=== PATIENT | female | born 1970 | race Caucasian/White ===

== ENCOUNTER → 2017-03-25 | Outpatient (CLI) | payer BC, OTHER ==
[~2017-03-25] MED LIST: CYAN100021 PO; LACT1CAP62 PO; MULT-608; OMEP20CA6; SCR1T PO; orthotricycline PO
--- NOTE | 2017-03-26 19:12 | Diagnostic Imaging Report ---
Bilateral screening mammogram. The current study was also evaluated with a Computer Aided Detection (CAD) system. INDICATION: Screening. No current complaints stated on the questionnaire. COMPARISON: 08/20/15. FINDINGS: The breasts are composed of scattered fibroglandular densities. There are occasional benign-appearing calcifications. Allowing for technique and positional differences, no suspicious change is seen. IMPRESSION: No significant change. ACR BI-RADS Category 2: Benign findings. Result letter will be mailed to the patient. Note: At least 10% of breast cancer is not imaged by mammography. Dictated on workstation # [id number]
== END ==
LOC: RAD 10:37
PROVIDERS: ATTEND Obstetrics & Gynecology
DX: Z12.31 Encounter for screening mammogram for malignant neoplasm of breast (principal)
CPT/HCPCS: 77067

== ENCOUNTER → 2017-05-21 | Outpatient (CLI) | payer BC ==
[2017-05-21 09:55] LABS: BASOPHILS % (AUTO) 0 % (0-10); EOSINOPHILS # (AUTO) 0.1 10^3/uL (0.0-0.3); EOSINOPHILS % (AUTO) 2 % (0-10); LYMPHOCYTES # (AUTO) 1.8 X 10^3 (1.0-4.0); LYMPHOCYTES % (AUTO) 28 % (12-44); MEAN CORPUSCULAR HEMOGLOBIN 30 PG (25-34); MEAN CORPUSCULAR HGB CONC 33 G/DL (32-36); MEAN CORPUSCULAR VOLUME 89 FL (80-99); MEAN PLATELET VOLUME 9.9 FL (7.4-10.4); MONOCYTES # (AUTO) 0.5 X 10^3 (0.0-1.0); MONOCYTES % (AUTO) 8 % (0-12); NEUTROPHILS % (AUTO) 63 % (42-75); PLATELET COUNT 301 10^3/uL (130-400); RED BLOOD COUNT 4.25 10^6/uL (4.35-5.85); WHITE BLOOD COUNT 6.4 10^3/uL (4.3-11.0)
[2017-05-21 10:16] LABS: ALANINE AMINOTRANSFERASE 12 U/L (0-55); ALBUMIN 4.2 GM/DL (3.2-4.5); ANION GAP 10 MMOL/L (5-14); ASPARTATE AMINO TRANSFERASE 15 U/L (5-34); BILIRUBIN,TOTAL 1.1 MG/DL (0.1-1.0); BLOOD UREA NITROGEN 18 MG/DL (7-18); BUN/CREATININE RATIO 23; CALCIUM 9.4 MG/DL (8.5-10.1); CARBON DIOXIDE 25 MMOL/L (21-32); CHLORIDE 105 MMOL/L (98-107); CHOLESTEROL 234 MG/DL (< 200); CREATININE SERUM 0.78 MG/DL (0.60-1.30); DIRECT LDL 159 MG/DL (1-129); GFR ESTIMATED > 60; GLUCOSE 98 MG/DL (70-105); POTASSIUM 3.9 MMOL/L (3.6-5.0); SODIUM 140 MMOL/L (135-145); TOTAL PROTEIN 7.3 GM/DL (6.4-8.2); TRIGLYCERIDES 70 MG/DL (<150); VLDL CHOLESTEROL 14 MG/DL (5-40)
[2017-05-21 10:39] LABS: THYROID STIMULATING HORMONE 0.77 UIU/ML (0.35-4.94)
== END ==
LOC: LAB 09:37
PROVIDERS: ATTEND Internal Medicine
DX: E78.00 Pure hypercholesterolemia, unspecified (principal); E78.1 Pure hyperglyceridemia
CPT/HCPCS: 36415; 80053; 80061; 84443; 85025

== ENCOUNTER → 2017-11-25 | Outpatient (CLI) | payer BC ==
[~2017-11-25] MED LIST changes: +BARIUM SUSPENSION 105% (LIQUID POLIBAR PLUS) 240 ML/DOSE PO ONE
--- NOTE | 2017-11-25 11:17 | Diagnostic Imaging Report ---
INDICATION: Patient is status post LAP-BAND surgery in 2009. The study is performed to evaluate for appropriate positioning of the LAP-BAND. COMPARISON: Prior upper GI performed on 12/06/2009. FINDINGS: Post surgical changes of LAP-BAND surgery are noted. The location and orientation of the LAP-BAND appear to be stable when compared with the prior exam from 2009. The distal esophagus demonstrates a smooth contour. Contrast does pass through the LAP-BAND into the stomach without difficulty. There is moderate narrowing at the location of the LAP-BAND. No significant obstruction is seen, however. There is no extravasation of contrast. Contrast does empty from the stomach into the proximal small bowel. 1 minute and 37 seconds of fluoroscopy was utilized. IMPRESSION: Postsurgical changes of LAP-BAND surgery. No complicating features are identified. Dictated by: Dictated on workstation # [id number]
== END ==
LOC: RAD 09:29
PROVIDERS: ATTEND Nurse Practitioner Family
DX: K21.9 Gastro-esophageal reflux disease without esophagitis (principal); Z98.84 Bariatric surgery status
CPT/HCPCS: 74241

== ENCOUNTER 2018-07-18 05:36 | Outpatient (CLI) | payer BC ==
[~2018-07-18] VITALS: Ht 170.2 cm; Wt 124.3 kg
[~2018-07-18 05:36] MED LIST changes: -BARIUM SUSPENSION 105% (LIQUID POLIBAR PLUS) 240 ML/DOSE PO ONE
== END 2018-07-18 12:02 | disposition home or self-care (01) ==
LOC: PREOP 05:36
PROVIDERS: ATTEND Podiatrist Foot Surgery
DX: Z01.818 Encounter for other preprocedural examination (principal)

== ENCOUNTER 2018-07-22 05:52 | Day surgery (SDC) | payer BC ==
[~2018-07-22] VITALS: Ht 170.2 cm; Wt 124.3 kg
--- OUTSIDE RECORDS SUMMARY | 2018-07-22 05:56 | XMS REPORT | Clinical Summary ---
Author Author User, [employer] [facility] Organization [facility] [place] Address Unknown Phone Unavailable Allergies, Adverse Reactions, Alerts Allergy Name Reaction Description Start Date Severity Status Provider No Known Allergies Teena Desai Conditions or Problems Problem Name Problem Code Onset Date Status Entry Date Provider Comment Standard Description Annotate SCIATICA/HERNIATED DISC 722.10 Resolved Chantelle Landrum Displacement of lumbar intervertebral disc without myelopathy BACK PAIN 724.5 Resolved Chantelle Landrum Backache, unspecified EASY BRUISABILITY 924.9 Resolved Chantelle Landrum Contusion of unspecified site HEADACHE 784.0 Resolved Chantelle Landrum Headache SKIN LESION 709.9 Resolved Chantelle Landrum Unspecified disorder of skin and subcutaneous tissue WEIGHT GAIN, ABNORMAL 783.1 Resolved Chantelle Landrum Abnormal weight gain CERUMEN IMPACTION, BILATERAL 380.4 Resolved Chantelle Landrum Impacted cerumen CONSTIPATION, CHRONIC 564.09 Resolved Chantelle Landrum Other constipation ABDOMINAL BLOATING 787.3 Resolved Chantelle Landrum Flatulence, eructation, and gas pain PALPITATIONS, OCCASIONAL 785.1 Resolved Chantelle Landrum Palpitations TACHYCARDIA 785.0 Resolved Chantelle Landrum Tachycardia, unspecified ABDOMINAL MASS, RIGHT UPPER QUADRANT 789.31 Resolved Chantelle Landrum Abdominal or pelvic swelling, mass, or lump, right upper quadrant WOUND OPEN, SITE NOS W/O COMPLICATION 879.8 Resolved Chantelle Landrum Open wound(s) (multiple) of unspecified site(s) except limbs, without mention of complication ABSCESS, EYELID 373.13 Resolved Chantelle Landrum Abscess of eyelid BRONCHITIS 490 Resolved Chantelle Landrum Bronchitis, not specified as acute or chronic SINUSITIS 473.9 Resolved Chantelle Landrum Unspecified sinusitis (chronic) ABDOMINAL PAIN, RIGHT UPPER QUADRANT 789.01 Resolved Chantelle Landrum Abdominal pain, right upper quadrant ABDOMINAL PAIN, ACUTE 789.00 Resolved Chantelle Landrum Abdominal pain, unspecified site DYSURIA 788.1 Resolved Chantelle Landrum Dysuria PELVIC PAIN 625.9 Resolved Chantelle Landrum Unspecified symptom associated with female genital organs RIB PAIN, RIGHT SIDED 848.3 Resolved Chantelle Landrum Sprain of ribs PLEURISY 511.0 Resolved Chantelle Landrum Pleurisy without mention of effusion or current tuberculosis ABDOMINAL PAIN, ACUTE 789.00 Resolved Chantelle Landrum Abdominal pain, unspecified site FRACTURE, STERNUM 807.2 Resolved Chantelle Landrum Closed fracture of sternum CHEST PAIN 786.5 Resolved Chantelle Landrum Chest pain PHARYNGITIS, ACUTE 462 Resolved Chantelle Landrum Acute pharyngitis BRONCHITIS 490 Resolved Chantelle Landrum Bronchitis, not specified as acute or chronic DERMATITIS 692.9 Resolved Chantelle Landrum Contact dermatitis and other eczema, unspecified cause NEVUS 216.9 Resolved Chantelle Landrum Benign neoplasm of skin, site unspecified CERUMEN IMPACTION, BILATERAL 380.4 Resolved Chantelle Landrum Impacted cerumen HYPERGLYCEMIA, MILD 790.6 Resolved Chantelle Landrum Other abnormal blood chemistry GERD 530.81 Resolved Chantelle Landrum Esophageal reflux ACNE VULGARIS, MILD 706.1 Resolved Chantelle Landrum Other acne ANEMIA NOS 285.9 Resolved Chantelle Landrum Anemia, unspecified VITAMIN B12 DEFICIENCY 266.2 Resolved Chantelle Landrum Other B-complex deficiencies FATIGUE 780.79 Resolved Chantelle Landrum Other malaise and fatigue GERD 530.81 Active Chantelle Landrum Esophageal reflux WELL WOMAN V70.0 Resolved Chantelle Landrum Routine general medical examination at a health care facility HEALTH SCREENING V70.0 Resolved Chantelle Landrum Routine general medical examination at a health care facility ANKLE PAIN, LEFT 719.47 Resolved Chantelle Landrum Pain in joint involving ankle and foot PNEUMONIA 486 Resolved Chantelle Landrum Pneumonia, organism unspecified URI 465.9 Resolved Chantelle Landrum Acute upper respiratory infections of unspecified site URTICARIA, ACUTE 708.9 Resolved Chantelle Landrum Unspecified urticaria POLYARTHRALGIA 719.49 Active Chantelle Landrum Pain in joint involving multiple sites HAND PAIN, RIGHT 729.5 Resolved Chantelle Landrum Pain in limb HYPERCHOLESTEROLEMIA 272.0 Active Chantelle Landrum Pure hypercholesterolemia ANEMIA, IRON DEFICIENCY NEC 280.8 Active Chantelle Landrum Other specified iron deficiency anemias WEIGHT GAIN, ABNORMAL 783.1 Active Chantelel Landrum Abnormal weight gain Medication List Medication Instructions Start Date Stop Date Generic Name NDC Status Provider Patient Instruction CARAFATE 1 GM/10ML SUSP 10 mL PO 30 minutes before meals and at bedtime. 2014 SUCRALFATE [id number] Active Chantelle Landrum VITAMIN B-12 1000 MCG TABS 1 PO daily CYANOCOBALAMIN 55280522122 Active Chantelle Landrum PREDNISONE 10 MG TAB 2 po at one time once daily for 3 days then 1 po daily for 3 days PREDNISONE 42471300027 No Longer Active Chantelle Landrum PREDNISONE 20 MG TAB 2 pills at once for 3 days then 1 pill daily for 3 days PREDNISONE 05996568677 No Longer Active Chantelle Landrum BIAXIN 500 MG TABS 1 PO BID X 7 DAYS CLARITHROMYCIN 12328873281 No Longer Active Chantelle Landrum TRIAMCINOLONE ACETONIDE 0.1 % CREA apply BID TRIAMCINOLONE ACETONIDE (TOP) 54229458727 No Longer Active Chantelle Landrum HYDROXYZINE HCL 25 MG TABS 1-2 PO QHS prn itching HYDROXYZINE HCL 43793910984 No Longer Active Chantelle Landrum TESSALON PERLES 100 MG CAPS 1 PO TID prn cough BENZONATATE 87717300913 No Longer Active Chantelle Landurm CIPRO 500 MG TABS 1 PO BID CIPROFLOXACIN HCL 10309778903 No Longer Active Chantelle Landrum PROAIR HFA 108 (90 BASE) MCG/ACT AERS 2 puff Q4 hrs prn wheezing ALBUTEROL SULFATE 67092696457 No Longer Active Chantelle Patricia Landrum ADV DISKUS 100-50 MCG/DOSE MISC 1 puff BID FLUTICASONE-SALMETEROL 13627273112 No Longer Active Chantelle Patricia Landrum HYDROCODONE-ACETAMINOPHEN 5-325 MG TABS 1-2 PO Q4-6 hrs prn pain HYDROCODONE-ACETAMINOPHEN 30103569118 No Longer Active Chantelle Patricia Landrum PHENTERMINE HCL 37.5 MG CAPS 1 PO Daily PHENTERMINE HCL 29902072578 No Longer Active Chantelle Patricia Landrum CARAFATE 1 GM/10ML SUSP 1 teaspoon PO AC and HS SUCRALFATE 44332106102 No Longer Active Chantelle Patricia Landrum MULTIVITAMINS TABS 1 PO QD MULTIPLE VITAMIN 52168635052 No Longer Active Chantelle Patricia Landrum PRILOSEC 20 MG CAP CR 1 PO BID OMEPRAZOLE 76962978576 No Longer Active Chantelle Patricia Landrum CARAFATE 1 GM TABS 1 PO 30 minutes before meals and at bedtime SUCRALFATE 72184539120 No Longer Active Chantelle Patricia Landrum PHENTERMINE HCL 37.5 MG CAPS 1 PO Daily PHENTERMINE HCL 93757812659 No Longer Active Chantelle Patricia Landrum ARMJAYDA THYROID 60 MG TABS 1 PO Daily THYROID 67491677970 No Longer Active Chantelle Patricia Landrum LES 180 MG TABS 1 PO QD FEXOFENADINE HCL 52310648216 No Longer Active Chantelle Patricia Landrum DOCUSATE SODIUM 50 MG/15ML SYRP 3 drops each ear. Let stand for 15 min. then rinse out. Repeat daily. DOCUSATE SODIUM 48352558824 No Longer Active Chantellemakenzie Landrum PREDNISONE 20 MG TAB 2 PO daily for 3 days and then 1 PO daily for 2 days PREDNISONE 50196673414 No Longer Active Chantelle Patricia Landrum BACTRIM DS 800-160 MG TAB 1 PO BID for 7 days TRIMETHOPRIM-SULFAMETHOXAZOLE 48396742727 No Longer Active Chantelle Patricia Landrum LORTAB 5 5-500 MG TABS 1 to 2 PO Q6hrs prn ACETAMINOPHEN-HYDROCODONE 41276009147 No Longer Active Chantelle Patricia Landrum PREDNISONE 20 MG TAB 2 PO daily for 4 days PREDNISONE 91486504016 No Longer Active Chantelle Patricia Landrum CODICLEAR DH 5-100 MG/5ML SYRP 5 cc Po Q4-6prn HYDROCODONE-GUAIFENESIN 19031033488 No Longer Active Chantelle Patricia Landrum MUCINEX 600 MG TB12 1 PO BID for 5 days GUAIFENESIN 49891251728 No Longer Active Chantelle Patricia Landrum BIAXIN XL PAC 500 MG TB24 2 pills at same time daily for 7 days CLARITHROMYCIN 03640320241 No Longer Active Chantellemakenzie Landrum PHENTERMINE HCL 37.5 MG CAPS 1 PO Daily PHENTERMINE HCL 42640575064 No Longer Active Chantelle Patricia Landrum AUGMENTIN 500-125 MG TAB 1 PO BID AMOXICILLIN-POT CLAVULANATE 00317481764 No Longer Active Chantelle Patricia Landrum AUGMENTIN 500-125 MG TAB 1 PO BID AMOXICILLIN-POT CLAVULANATE 26447094426 No Longer Active Chantelle Patricia JAVED NASAL SPRAY (DEXAMETHASONE, GENTAMICIN, SALINE) 2 puffs each nostril TID DR. MIRAMONTES'S NASAL SPRAY (DEXAMETHASONE, GENTAMICIN, SALINE) No Longer Active Chantelle Patricia Landrum LORTAB 5 5-500 MG TABS 1 to 2 PO Q6hrs prn ACETAMINOPHEN-HYDROCODONE 15952169640 No Longer Active Chantelle Patricia Landrum TRINESSA (28) 0.035 MG TABS one daily NORGESTIMATE- ETHINYL ESTRADIOL 77238517362 No Longer Active Chantelle Patricia Landrum LORTAB 5 5-500 MG TABS 1 PO Q6hrs prn HYDROCODONE- ACETAMINOPHEN 93286896274 No Longer Active Chantelle Patricia Landrum LACTULOSE 10 GM/15ML SOLN 30cc PO QHS prn LACTULOSE 55132400624 No Longer Active Chantelle Patricia MIRAMONTES'S NASAL SPRAY (DEXAMETHASONE, GENTAMICIN, SALINE) 2 puffs each nostril BID DR. MIRAMONTES'S NASAL SPRAY (DEXAMETHASONE, GENTAMICIN, SALINE) No Longer Active Chantelle Patricia Landrum TOBREX 0.3 % SOLN 2 gtts in left eye q 4 hrs. x 5 days TOBRAMYCIN SULFATE 13142374895 No Longer Active Chantelle Patricia Landrum ZITHROMAX Z-DENA 250 MG TABS as directed AZITHROMYCIN 26425778430 No Longer Active Chantelle Patricia Landrum ROBITUSSIN A-C 10-100 MG/5ML SYRUP 5cc PO Q 4-6 hr prn ROBITUSSIN A-C 10-100 MG/5ML SYRUP 10013027330 No Longer Active Chantelle Patricia Landrum KEFLEX 500 MG CAPS 1 PO QID CEPHALEXIN 61174560770 No Longer Active Chantelle Patricia Landrum LORTAB 5 5-500 MG TABS 1 PO Q6hrs prn HYDROCODONE- ACETAMINOPHEN 41472596457 No Longer Active Chantelle Patricia Landrum PHENTERMINE HCL 37.5 MG CAPS 1 PO Qam PHENTERMINE HCL 29695421176 No Longer Active Chantelle Landrum MIRALAX POWD 1 heaping tblspoon in 8 oz of water or juice PO QD POLYETHYLENE GLYCOL 3350 67268783005 No Longer Active Chantelle Landrum COLACE 60 MG/15ML SYRP for ear removal DOCUSATE SODIUM 41094762749 No Longer Active Chantelle Landrum ZELNORM 6 MG TABS 1 po QD-BID TEGASEROD MALEATE 24125292051 No Longer Active Chantelle Landrum Immunizations Vaccine Administration Date Value Standard Description Influenza vaccine given done influenza virus vaccine, unspecified formulation Vital Signs Date Name Value Unit Range Description blood pressure, diastolic - 8462-4 70 mm[Hg] BP rogers blood pressure, systolic - 8480-6 110 mm[Hg] BP sys pulse rate E&M - 8867-4 76 /min Heart rate respiratory rate E&M - 9279-1 14 /min Resp rate weight E&M - 3141-9 233 [lb_av] Weight Measured blood pressure, diastolic - 8462-4 66 mm[Hg] BP rogers blood pressure, systolic - 8480-6 120 mm[Hg] BP sys pulse rate E&M - 8867-4 78 /min Heart rate respiratory rate E&M - 9279-1 14 /min Resp rate temperature E&M 98.3 [degF] Body temperature weight E&M - 3141-9 236 [lb_av] Weight Measured blood pressure, diastolic - 8462-4 78 mm[Hg] BP rogers blood pressure, systolic - 8480-6 110 mm[Hg] BP sys pulse rate E&M - 8867-4 72 /min Heart rate respiratory rate E&M - 9279-1 14 /min Resp rate weight E&M - 3141-9 220 [lb_av] Weight Measured blood pressure, diastolic - 8462-4 76 mm[Hg] BP rogers blood pressure, systolic - 8480-6 122 mm[Hg] BP sys pulse rate E&M - 8867-4 66 /min Heart rate respiratory rate E&M - 9279-1 14 /min Resp rate temperature E&M 97.9 [degF] Body temperature blood pressure, diastolic - 8462-4 76 mm[Hg] BP rogers blood pressure, systolic - 8480-6 122 mm[Hg] BP sys pulse rate E&M - 8867-4 70 /min Heart rate respiratory rate E&M - 9279-1 12 /min Resp rate weight E&M - 3141-9 223 [lb_av] Weight Measured Diagnostic Results Date Name Value Unit Range Description Clinical Lists Update: CBC,CMP,ESR - Chemistry albumin, serum 4.0 g/dL Estimated Glomerular Filtration Rate (calc) >60 mL/min/1.73m2 urea nitrogen, blood 15 mg/dL calcium, serum 9.5 mg/dL chloride, serum 105 mmol/L carbon dioxide, venous blood 25 mmol/L creatinine, serum 0.78 mg/dL potassium, serum 4.0 mmol/L protein, total, serum 7.9 g/dL aspartate aminotransferase (SGOT), serum 24 U/L alanine aminotransferase (SGPT), serum 14 U/L bilirubin, serum, total 0.9 mg/dL sodium, serum 141 mmol/L glucose, plasma fasting 104 mg/dL alkaline phosphatase, serum 64 U/L Clinical Lists Update: CBC,CMP,ESR - Hematology hematocrit, blood 38 % erythrocyte sedimentation rate 59 mm/h hemoglobin, blood 13.0 g/dL platelet count 252 10*3/mm3 erythrocyte (RBC) count 4.22 10*6/mm3 leukocyte count, blood 5.9 10*3/mm3 mean corpuscular volume, RBC 90 fL red blood cell distribution width 12.8 % Clinical Lists Update: CBC,CMP,FLP,TSH,FREE T4,ESR,HGA1C - Chemistry carbon dioxide, venous blood 25 mmol/L cholesterol, serum 271 mg/dL LDL cholesterol, serum 188 mg/dL thyroid stimulating hormone, serum 0.98 u[iU]/mL hemoglobin A1C, blood, as % of total hemoglobin 4.1 % HDL cholesterol, serum 70 mg/dL thyroxine, serum, free 1.18 ng/dL creatinine, serum 0.80 mg/dL albumin, serum 4.0 g/dL Estimated Glomerular Filtration Rate (calc) >60 mL/min/1.73m2 chloride, serum 105 mmol/L calcium, serum 9.6 mg/dL urea nitrogen, blood 15 mg/dL alkaline phosphatase, serum 46 U/L potassium, serum 3.9 mmol/L protein, total, serum 6.8 g/dL aspartate aminotransferase (SGOT), serum 11 U/L alanine aminotransferase (SGPT), serum 7 U/L bilirubin, serum, total 1.1 mg/dL triglyceride, serum, fasting 183 mg/dL sodium, serum 139 mmol/L very low density lipoproteins 37 mg/dL glucose, plasma fasting 96 mg/dL Clinical Lists Update: CBC,CMP,FLP,TSH,FREE T4,ESR,HGA1C - Hematology red blood cell distribution width 12.1 % platelet count 280 10*3/mm3 hematocrit, blood 36 % hemoglobin, blood 12.2 g/dL erythrocyte sedimentation rate 28 mm/h erythrocyte (RBC) count 3.97 10*6/mm3 leukocyte count, blood 5.4 10*3/mm3 mean corpuscular volume, RBC 91 fL Clinical Lists Update: CBC,FERRITIN - Chemistry ferritin, serum 53 ng/mL Clinical Lists Update: CBC,FERRITIN - Hematology hematocrit, blood 37 % hemoglobin, blood 12.4 g/dL platelet count 285 10*3/mm3 erythrocyte (RBC) count 4.00 10*6/mm3 mean corpuscular volume, RBC 92 fL red blood cell distribution width 13.1 % leukocyte count, blood 5.7 10*3/mm3 Clinical Lists Update: Ferritin - Chemistry ferritin, serum 10 ng/mL Encounters Code Encounter Date Provider Facility CPT-98383 Ofc Vst, Est Level IV 16:54:36 CDT Chantelle Landrum DO, FACP CPT-03832 Ofc Vst, Est Level IV 18:02:37 CDT Chantelle Landrum [facility] CPT-25022 Ofc Vst, Est Level III 16:14:14 [employer] Chantelle Landrum DO, FACP CPT-96754 Ofc Vst, Est Level IV 16:48:50 [employer] Chantelle Landrum DO, FACP CPT-03355 Ofc Vst, Est Level III 13:04:28 [employer] Chantelle Landrum [facility] CPT-38987 Ofc Vst, Est Level IV 09:54:51 [employer] Chantelle Landrum DO, FACP CPT-00472 Ofc Vst, Est Level IV 15:24:09 [employer] Chantelle Patricia Diallo Chantelle Kurtis Diallo, DO, FACP CPT-83307 Ofc Vst, Est Level IV 12:57:25 [employer] Chantelle Patricia Watkinsner Chantelle S Diallo, DO, FACP CPT-37124 Ofc Vst, Est Level IV 09:31:50 [employer] Chantelle Patricia Landrum Chantelle S Diallo, DO, FACP CPT-18737 Ofc Vst, Est Level IV 14:15:06 CDT Chantelle Patricia Diallo Chantelle S Diallo, DO, FACP CPT-72492 Ofc Vst, Est Level III 15:43:47 CDT Chantelle Patricia Diallo Chantelle Kurtis Diallo, DO, FACP CPT-82898 Ofc Vst, Est Level III 16:45:32 CDT Chantelle Patricia Diallo Lockhart Kurtis Diallo, DO, FACP CPT-13751 Ofc Vst, Est Level III 11:33:55 CDT Chantelle Patricia Diallo Chantelle Kurtis Diallo, DO, FACP CPT-74969 Ofc Vst, Est Level III 10:56:13 CDT Chantelle Patricia Diallo Landrum, DO, FACP CPT-07096 Ofc Vst, Est Level IV 11:29:14 CDT Chantellemakenzie Landrum [facility] [place] CPT-72818 Ofc Vst, Est Level III 11:39:54 CDT Chantelle Patricia Landrum [facility] [place] CPT-09810 Ofc Vst, Est Level III 15:07:39 CDT Chantellemakenzie Landrum [facility] [place] CPT-13057 Ofc Vst, Est Level III 17:03:41 CDT Chantellemakenzie Landrum [facility] [place] CPT-76005 Ofc Vst, Est Level IV 15:17:07 CDT Chantelle Patricia Landrum [facility] [place] CPT-79502 Ofc Vst, Est Level III 14:00:05 GLUE MIXER Chantelle Landrum [facility] [place] CPT-19708 Ofc Vst, Est Level II 10:08:33 GLUE MIXER Chantelle Landrum [facility] [place] CPT-08621 Ofc Vst, Est Level II 15:17:51 CDT Chantelle Patricia Landrum [facility] [place] CPT-26696 Ofc Vst, Est Level II 10:49:48 CDT Chantelle Patricia Landrum [facility] [place] CPT-20580 Ofc Vst, Est Level III 10:55:45 CDT Chantelle Patricia Landrum [facility] [place] CPT-02177 Ofc Vst, Est Level II 13:09:23 GLUE MIXER Chantelle Landrum [facility] [place] CPT-69116 Ofc Vst, Est Level II 16:58:48 GLUE MIXER Chantelle Landrum [facility] [place] CPT-31761 Ofc Vst, Est Level III 12:50:50 GLUE MIXER Chantelle Landrum [facility] [place] CPT-19576 Ofc Vst, Est Level III 17:36:57 GLUE MIXER Chantelle Landrum [facility] [place] CPT-44207 Ofc Vst, Est Level III 19:11:38 GLUE MIXER Chantelle Landrum [facility] [place] CPT-16716 Ofc Vst, New Level III 17:31:54 CDT Chantelle Patricia Landrum [facility] [place] Procedures Code Procedure Name Date Entry Date Standard Description CPT-89833 Preventive, Est, (40-64) 16:55:49 CDT CPT-63622 Preventive, Est, (40-64) 15:30:27 GLUE MIXER CPT-85739 Preventive, Est, (40-64) 12:44:06 GLUE MIXER CPT-18522 Preventive, Est, (40-64) 13:17:53 GLUE MIXER CPT-69675 Ear Wax Removal 15:43:47 CDT CPT-28081 Other Injection (IM/SC) 10:49:48 CDT CPT-78295 Tetanus vaccine, adsorbed, intramuscular 10:49:48 CDT CPT-07293 EKG w/ Interpretation 13:09:23 GLUE MIXER CPT-68900 Ear Wax Removal 12:50:50 GLUE MIXER
--- OUTSIDE RECORDS SUMMARY | 2018-07-22 05:57 | XMS REPORT | Clinical Summary ---
Author Author User, [employer] Organization [facility] [place] Address Unknown Phone Unavailable Allergies, Adverse Reactions, [...] Impacted cerumen CONSTIPATION, CHRONIC 564.09 Resolved Chantelle Landurm Other constipation ABDOMINAL BLOATING 787.3 Resolved Chantelle [...] malaise and fatigue GERD 530.81 Active Chantelle Lnadrum Esophageal reflux WELL WOMAN V70.0 Resolved Chantelle [...] deficiency anemias WEIGHT GAIN, ABNORMAL 783.1 Active Chantelle Landrum Abnormal weight gain ACTINIC KERATOSIS 702.0 Active Chantelle Landrum Actinic keratosis Medication List Medication Instructions Start Date Stop Date Generic Name NDC Status Provider Patient Instruction CARAFATE 1 GM/10ML SUSP 10 mL PO 30 minutes before meals and at bedtime. 2014 SUCRALFATE [id number] Active Chantelle Landrum VITAMIN B-12 1000 MCG TABS 1 PO daily CYANOCOBALAMIN 18558521267 Active Chantelle Landrum PREDNISONE 10 MG TAB 2 po at one time once daily for 3 days then 1 po daily for 3 days PREDNISONE 77234697924 No Longer Active Chantelle Landrum PREDNISONE 20 MG TAB 2 pills at once for 3 days then 1 pill daily for 3 days PREDNISONE 03880708244 No Longer Active Chantelle Landurm BIAXIN 500 MG TABS 1 PO BID X 7 DAYS CLARITHROMYCIN 57307739473 No Longer Active Chantelle Landrum TRIAMCINOLONE ACETONIDE 0.1 % CREA apply BID TRIAMCINOLONE ACETONIDE (TOP) 31193688604 No Longer Active Chantelle Landrum HYDROXYZINE HCL 25 MG TABS 1-2 PO QHS prn itching HYDROXYZINE HCL 54260145950 No Longer Active Chantelle Landrum TESSALON PERLES 100 MG CAPS 1 PO TID prn cough BENZONATATE 51641340741 No Longer Active Chantelle Landrum CIPRO 500 MG TABS 1 PO BID CIPROFLOXACIN HCL 98729090146 No Longer Active Chantelle Patricia Landrum PROAIR HFA 108 (90 BASE) MCG/ACT AERS 2 puff Q4 hrs prn wheezing ALBUTEROL SULFATE 07896902871 No Longer Active Chantelle Patricia Landrum ADVAIR DISKUS 100-50 MCG/DOSE MISC 1 puff BID FLUTICASONE-SALMETEROL 04284158693 No Longer Active Chantelle Patricia Landrum HYDROCODONE-ACETAMINOPHEN 5-325 MG TABS 1-2 PO Q4-6 hrs prn pain HYDROCODONE-ACETAMINOPHEN 22017519857 No Longer Active Chantelle Patricia Landrum PHENTERMINE HCL 37.5 MG CAPS 1 PO Daily PHENTERMINE HCL 01768608129 No Longer Active Chantelle Patricia Landrum CARAFATE 1 GM/10ML SUSP 1 teaspoon PO AC and HS SUCRALFATE 41231102964 No Longer Active Chantelle Patricia Landrum MULTIVITAMINS TABS 1 PO QD MULTIPLE VITAMIN 00316414890 No Longer Active Chantelle Patricia Landrum PRILOSEC 20 MG CAP CR 1 PO BID OMEPRAZOLE 69292102514 No Longer Active Chantelle Patricia Landrum CARAFATE 1 GM TABS 1 PO 30 minutes before meals and at bedtime SUCRALFATE 29556952334 No Longer Active Chantelle Particia Landrum PHENTERMINE HCL 37.5 MG CAPS 1 PO Daily PHENTERMINE HCL 93698790642 No Longer Active Chantelle Patricia Landrum ARMOUR THYROID 60 MG TABS 1 PO Daily THYROID 58441795672 No Longer Active Chantelle Patricia Landrum LES 180 MG TABS 1 PO QD FEXOFENADINE HCL 54738587594 No Longer Active Chantelle Patricia Landrum DOCUSATE SODIUM 50 MG/15ML SYRP 3 drops each ear. Let stand for 15 min. then rinse out. Repeat daily. DOCUSATE SODIUM 39090161396 No Longer Active Chantelle Patricia Landrum PREDNISONE 20 MG TAB 2 PO daily for 3 days and then 1 PO daily for 2 days PREDNISONE 89437059613 No Longer Active Chantelle Patricia Landrum BACTRIM DS 800-160 MG TAB 1 PO BID for 7 days TRIMETHOPRIM-SULFAMETHOXAZOLE 89038043020 No Longer Active Chantelle Patricia Landrum LORTAB 5 5-500 MG TABS 1 to 2 PO Q6hrs prn ACETAMINOPHEN-HYDROCODONE 34524022266 No Longer Active Chantelle Patricia Landrum PREDNISONE 20 MG TAB 2 PO daily for 4 days PREDNISONE 37551983905 No Longer Active Chantelle Patricia Landrum CODICLEAR DH 5-100 MG/5ML SYRP 5 cc Po Q4-6prn HYDROCODONE-GUAIFENESIN 30584514665 No Longer Active Chantelle Patricia Landrum MUCINEX 600 MG TB12 1 PO BID for 5 days GUAIFENESIN 31898375695 No Longer Active Chantellemakenzie Landrum BIAXIN XL PAC 500 MG TB24 2 pills at same time daily for 7 days CLARITHROMYCIN 86486902945 No Longer Active Chantellemakenzie Landrum PHENTERMINE HCL 37.5 MG CAPS 1 PO Daily PHENTERMINE HCL 79028055278 No Longer Active Chantelle Patricia Landrum AUGMENTIN 500-125 MG TAB 1 PO BID AMOXICILLIN-POT CLAVULANATE 48793471299 No Longer Active Chantelle Patricia Landrum AUGMENTIN 500-125 MG TAB 1 PO BID AMOXICILLIN-POT CLAVULANATE 32892653146 No Longer Active Chantelle Patricia MIRAMONTES'S NASAL SPRAY (DEXAMETHASONE, GENTAMICIN, SALINE) 2 puffs each nostril TID DR. MIRAMONTES'S NASAL SPRAY (DEXAMETHASONE, GENTAMICIN, SALINE) No Longer Active Chantelle Patricia Landrum LORTAB 5 5-500 MG TABS 1 to 2 PO Q6hrs prn ACETAMINOPHEN-HYDROCODONE 59676225878 No Longer Active Chantelle Patricia Landrum TRINESSA (28) 0.035 MG TABS one daily NORGESTIMATE- ETHINYL ESTRADIOL 08837484254 No Longer Active Chantelle Patricia Landrum LORTAB 5 5-500 MG TABS 1 PO Q6hrs prn HYDROCODONE- ACETAMINOPHEN 76774327612 No Longer Active Chantellemakenzie Landrum LACTULOSE 10 GM/15ML SOLN 30cc PO QHS prn LACTULOSE 85719628825 No Longer Active Chantelle Patricia MIRAMONTES'Kurtis NASAL SPRAY (DEXAMETHASONE, GENTAMICIN, SALINE) 2 puffs each nostril BID DR. MIRAMONTES'Kurtis NASAL SPRAY (DEXAMETHASONE, GENTAMICIN, SALINE) No Longer Active Chantelle Landrum TOBREX 0.3 % SOLN 2 gtts in left eye q 4 hrs. x 5 days TOBRAMYCIN SULFATE 88885996988 No Longer Active Chantelle Patricia Landrum ZITHROMAX Z-DENA 250 MG TABS as directed AZITHROMYCIN 86964614479 No Longer Active Chantelle Patricia Landrum ROBITUSSIN A-C 10-100 MG/5ML SYRUP 5cc PO Q 4-6 hr prn ROBITUSSIN A-C 10-100 MG/5ML SYRUP 63468289463 No Longer Active Chantelle Patricia Landrum KEFLEX 500 MG CAPS 1 PO QID CEPHALEXIN 45270979383 No Longer Active Chantelle Patricia Landrum LORTAB 5 5-500 MG TABS 1 PO Q6hrs prn HYDROCODONE- ACETAMINOPHEN 84479352929 No Longer Active Chantellemakenzie Landrum PHENTERMINE HCL 37.5 MG CAPS 1 PO Qam PHENTERMINE HCL 14415002473 No Longer Active Chantelle Patricia Landrum MIRALAX POWD 1 heaping tblspoon in 8 oz of water or juice PO QD POLYETHYLENE GLYCOL 3350 67326144027 No Longer Active Chantelle aPtricia Landrum COLACE 60 MG/15ML SYRP for ear removal DOCUSATE SODIUM 63804904629 No Longer Active Chantelle Patricia Landrum ZELNORM 6 MG TABS 1 po QD-BID TEGASEROD MALEATE 63747738137 No Longer Active Chantellemakenzie Landrum Immunizations Vaccine Administration Date Value Standard Description Influenza vaccine given done influenza virus vaccine, unspecified formulation Vital Signs Date Name Value Unit Range Description blood pressure, diastolic - 8462-4 80 mm[Hg] BP rogers blood pressure, systolic - 8480-6 120 mm[Hg] BP sys pulse rate E&M - 8867-4 72 /min Heart rate respiratory rate E&M - 9279-1 14 /min Resp rate weight E&M - 3141-9 227 [lb_av] Weight Measured blood pressure, diastolic - 8462-4 70 mm[Hg] [...] ng/mL Encounters Code Encounter Date Provider Facility CPT-55093 Ofc Vst, Est Level IV 16:54:36 CDT Chantelle Landrum DO, [facility] CPT-40355 Ofc Vst, Est Level IV 18:02:37 CDT Chantelle Landrum [facility] CPT-50231 Ofc Vst, Est Level III 16:14:14 [employer] Chantelle Hull Landrum, DO, FACP CPT-31179 Ofc Vst, Est Level IV 16:48:50 [employer] OPERATOR Chantelle Hull Landrum, DO, FACP CPT-37510 Ofc Vst, Est Level III 13:04:28 [employer]ENDER ROLL OPERATOR Chantelle Landrum [facility] CPT-70787 Ofc Vst, Est Level IV 09:54:51 [employer] RO[employer] OPERATOR Chantelle Hull Landrum, DO, FACP CPT-30919 Ofc Vst, Est Level IV 15:24:09 [employer]ER RO[employer] OPERATOR Chantelle Hull Landrum, DO, FACP CPT-13520 Ofc Vst, Est Level IV 12:57:25 [employer] RO[employer] OPERATOR Chantelle Hull Landrum, DO, FACP CPT-61152 Ofc Vst, Est Level IV 09:31:50 [employer] RO[employer] OPERATOR Chantelle Hull Landrum, DO, FACP CPT-37127 Ofc Vst, Est Level IV 14:15:06 CDT Chantelle Hull [place], DO, FACP CPT-25386 Ofc Vst, Est Level III 15:43:47 CDT Chantelle Hull [place], DO, FACP CPT-03558 Ofc Vst, Est Level III 16:45:32 CDT Chantellemakenzie Hull [place], DO, FACP CPT-74204 Ofc Vst, Est Level III 11:33:55 CDT Chantellemakenzie Hull Landrum, DO, FACP CPT-63042 Ofc Vst, Est Level III 10:56:13 CDT Chantelle Hull [place]ial[place], DO, FACP CPT-07420 Ofc Vst, Est Level IV 11:29:14 CDT Chantellemakenzie Landrum [facility] CPT-18524 Ofc Vst, Est Level III 11:39:54 CDT Chantelle Patricia Landrum [facility] [place] CPT-92988 Ofc Vst, Est Level III 15:07:39 CDT Chantelle Patricia Landrum [facility] [place] CPT-63578 Ofc Vst, Est Level III 17:03:41 CDT Chantelle Patricia Landrum [facility] [place] CPT-26505 Ofc Vst, Est Level IV 15:17:07 CDT Chantelle Patricia Landrum [facility] [place] CPT-51469 Ofc Vst, Est Level III 14:00:05 [employer]ENDER ROLL OPERATOR Chantelle Landrum [facility] [place] CPT-00675 Ofc Vst, Est Level II 10:08:33 CALENDER ROLL OPERATOR Chantelle Landrum [facility] [place] CPT-69923 Ofc Vst, Est Level II 15:17:51 CDT Chantelle Patricia Landrum [facility] [place] CPT-13047 Ofc Vst, Est Level II 10:49:48 CDT Chantelle Patricia Landrum [facility] [place] CPT-34104 Ofc Vst, Est Level III 10:55:45 CDT Chantelle Patricia Landrum [facility] [place] CPT-72798 Ofc Vst, Est Level II 13:09:23 CALENDER ROLL OPERATOR Chantelle Landrum [facility] [place] CPT-40948 Ofc Vst, Est Level II 16:58:48 CALENDER ROLL OPERATOR Chantelle Landrum [facility] [place] CPT-92229 Ofc Vst, Est Level III 12:50:50 CALENDER RO[employer] OPERATOR Chantelle Landrum [facility] [place] CPT-27049 Ofc Vst, Est Level III 17:36:57 CALENDER ROLL OPERATOR Chantelle Landrum [facility] [place] CPT-08628 Ofc Vst, Est Level III 19:11:38 [employer]ENDER RO[employer] OPERATOR Chantelle Landrum [facility] [place] CPT-19258 Ofc Vst, New Level III 17:31:54 CDT Chantelle Patricia Landrum [facility] [place] Procedures Code Procedure Name Date Entry Date Standard Description CPT-87817 Cryopathy Skin 17:06:46 CDT CPT-04320 Preventive, Est, (40-64) 16:55:49 CDT CPT-01957 Preventive, Est, (40-64) 15:30:27 [employer]ER ROLL OPERATOR CPT-34181 Preventive, Est, (40-64) 12:44:06 CALENDER ROLL OPERATOR CPT-56734 Preventive, Est, (40-64) 13:17:53 [employer]ENDER ROLL OPERATOR CPT-23500 Ear Wax Removal 15:43:47 CDT CPT-12919 Other Injection (IM/SC) 10:49:48 CDT CPT-26837 Tetanus vaccine, adsorbed, intramuscular 10:49:48 CDT CPT-28888 EKG w/ Interpretation 13:09:23 CALENDER ROLL OPERATOR CPT-95909 Ear Wax Removal 12:50:50 CALENDER ROLL OPERATOR
--- OUTSIDE RECORDS SUMMARY | 2018-07-22 06:01 | XMS REPORT | Continuity of Care Document ---
Author Author [facility] Organization [facility] Address Unknown Phone Unavailable Allergies Active Description Code Type Severity Reaction Onset Reported/Identified Relationship to Patient Clinical Status Yes No Known Drug Allergies [id number] Drug Allergy Unknown N/A 12/05/2009 Medications There is no data. Problems Date Dx Coded Attending Type Code Diagnosis Diagnosed By 08/08/2011 Ot 276.51 DEHYDRATION 08/08/2011 Ot 780.79 OTH MALAISE FATIGUE 08/08/2011 Ot 787.01 NAUSEA WITH VOMITING 08/08/2011 Ot V45.86 BARIATRIC SURGERY STATUS 11/08/2011 Ot 280.9 IRON DEFIC ANEMIA NOS 08/14/2014 ROBBINS DO, MIKKI Ot 486 08/14/2014 ROBBINS DO, MIKKI Ot 780.60 08/14/2014 ROBBINS DO, MIKKI Ot 786.07 09/25/2014 ROBBINS DO, MIKKI Ot V76.12 01/14/2015 ROBBINS DO, MIKKI Ot 269.2 01/14/2015 ROBBINS DO, MIKKI Ot 285.9 01/14/2015 ROBBINS DO, MIKKI Ot 719.49 01/14/2015 ROBBINS DO, MIKKI Ot 728.9 01/14/2015 ROBBINS DO, MIKKI Ot 729.1 01/14/2015 ROBBINS DO, MIKKI Ot V70.0 01/16/2015 ROBBINS DO, MIKKI Ot 280.9 01/18/2015 ROBBINS DO, MIKKI Ot 280.9 02/16/2015 ROBBINS DO, MIKKI Ot 280.9 03/12/2015 ROBBINS DO, MIKKI Ot 272.0 03/12/2015 ROBBINS DO, MIKKI Ot 280.9 03/12/2015 ROBBINS DO, MIKKI Ot 530.81 03/12/2015 ROBBINS DO, MIKKI Ot 719.49 03/12/2015 ROBBINS DO, MIKKI Ot 783.1 03/12/2015 ROBBINS DO, MIKKI Ot V58.69 03/12/2015 ROBBINS DO, MIKIK Ot V58.83 03/12/2015 ROBBINS DO, MIKKI Ot V70.0 04/14/2015 ROBBINS DO, MIKKI Ot 280.9 IRON DEFIC ANEMIA NOS 08/22/2015 CARLA VARNER, HYUN Chapa Ot Z12.31 09/23/2015 Ot 462 09/23/2015 Ot 530.11 09/23/2015 Ot 530.81 09/23/2015 Ot 535.50 09/23/2015 Ot 553.3 09/23/2015 Ot 780.57 09/23/2015 Ot V76.12 09/23/2015 Ot 266.2 09/23/2015 Ot 285.9 09/23/2015 Ot 780.79 09/23/2015 Ot 790.29 09/23/2015 Ot V76.12 09/23/2015 Ot 266.2 09/23/2015 Ot 285.9 09/23/2015 Ot 511.0 09/23/2015 Ot 788.1 09/23/2015 Ot 790.29 09/23/2015 Ot 280.9 09/23/2015 Ot 280.9 09/23/2015 Ot V76.12 09/23/2015 Ot 266.2 09/23/2015 Ot 285.9 09/23/2015 Ot 780.79 09/23/2015 Ot 790.29 09/23/2015 ROBBINS DO, MIKKI Ot V58.69 09/23/2015 ROBBINS DO, MIKKI Ot V76.12 09/23/2015 ROBBINS DO, MIKKI Ot 719.03 09/23/2015 ROBBINS DO, MIKKI Ot 719.43 09/23/2015 ROBBINS DO, MIKKI Ot 719.45 09/23/2015 ROBBINS DO, MIKKI Ot 719.47 09/23/2015 ROBBINS DO, MIKKI Ot 722.52 09/23/2015 ROBBINS DO, MIKKI Ot 959.19 09/23/2015 ROBBINS DO, MIKKI Ot E000.8 09/23/2015 ROBBINS DO, MIKKI Ot E006.1 09/23/2015 ROBBINS DO, MIKKI Ot E828.2 09/23/2015 ROBBINS DO, MIKKI Ot V76.12 09/23/2015 ROBBINS DO, MIKKI Ot 486 09/23/2015 ROBBINS DO, MIKKI Ot 780.60 09/23/2015 ROBBINS DO, MIKKI Ot 786.07 09/23/2015 ROBBINS DO, MIKKI Ot 269.2 09/23/2015 ROBBINS DO, MIKKI Ot 285.9 09/23/2015 ROBBINS DO, MIKKI Ot 719.49 09/23/2015 ROBBINS DO, MIKKI Ot 728.9 09/23/2015 ROBBINS DO, MIKKI Ot 729.1 09/23/2015 ROBBINS DO, MIKKI Ot V70.0 09/23/2015 ROBBINS DO, MIKKI Ot 272.0 09/23/2015 ROBBINS DO, MIKKI Ot 280.9 09/23/2015 ROBBINS DO, MIKKI Ot 530.81 09/23/2015 ROBBINS DO, MIKKI Ot 719.49 09/23/2015 ROBBINS DO, MIKKI Ot 783.1 09/23/2015 ROBBINS DO, MIKKI Ot V58.69 09/23/2015 ROBBINS DO, MIKKI Ot V58.83 09/23/2015 ROBBINS DO, MIKKI Ot V70.0 09/23/2015 ROBBINS DO, MIKKI Ot 280.9 09/23/2015 CARLA VARNER, HYUN Chapa Ot Z12.31 10/21/2015 Ot 462 10/21/2015 Ot 530.11 10/21/2015 Ot 530.81 10/21/2015 Ot 535.50 10/21/2015 Ot 553.3 10/21/2015 Ot 780.57 10/21/2015 Ot V76.12 10/21/2015 Ot 266.2 10/21/2015 Ot 285.9 10/21/2015 Ot 780.79 10/21/2015 Ot 790.29 10/21/2015 Ot V76.12 10/21/2015 Ot 266.2 10/21/2015 Ot 285.9 10/21/2015 Ot 511.0 10/21/2015 Ot 788.1 10/21/2015 Ot 790.29 10/21/2015 Ot 280.9 10/21/2015 Ot 280.9 10/21/2015 Ot V76.12 10/21/2015 Ot 266.2 10/21/2015 Ot 285.9 10/21/2015 Ot 780.79 10/21/2015 Ot 790.29 10/21/2015 ROBBINS DO, MIKKI Ot V58.69 10/21/2015 ROBBINS DO, MIKKI Ot V76.12 10/21/2015 ROBBINS DO, MIKKI Ot 719.03 10/21/2015 ROBBINS DO, MIKKI Ot 719.43 10/21/2015 ROBBINS DO, MIKKI Ot 719.45 10/21/2015 ROBBINS DO, MIKKI Ot 719.47 10/21/2015 ROBBINS DO, MIKKI Ot 722.52 10/21/2015 ROBBINS DO, MIKKI Ot 959.19 10/21/2015 ROBBINS DO, MIKKI Ot E000.8 10/21/2015 ROBBINS DO, MIKKI Ot E006.1 10/21/2015 ROBBINS DO, MIKKI Ot E828.2 10/21/2015 ROBBINS DO, MIKKI Ot V76.12 10/21/2015 ROBBINS DO, MIKKI Ot 486 10/21/2015 ROBBINS DO, MIKKI Ot 780.60 10/21/2015 ROBBINS DO, MIKKI Ot 786.07 10/21/2015 ROBBINS DO, MIKKI Ot 269.2 10/21/2015 ROBBINS DO, MIKKI Ot 285.9 10/21/2015 ROBBINS DO, MIKKI Ot 719.49 10/21/2015 ROBBINS DO, MIKKI Ot 728.9 10/21/2015 ROBBINS DO, MIKKI Ot 729.1 10/21/2015 ROBBINS DO, MIKKI Ot V70.0 10/21/2015 ROBBINS DO, MIKKI Ot 272.0 10/21/2015 ROBBINS DO, MIKKI Ot 280.9 10/21/2015 ROBBINS DO, MIKKI Ot 530.81 10/21/2015 ROBBINS DO, MIKKI Ot 719.49 10/21/2015 ROBBINS DO, MIKKI Ot 783.1 10/21/2015 ROBBINS DO, MIKKI Ot V58.69 10/21/2015 ROBBINS DO, MIKKI Ot V58.83 10/21/2015 ROBBINS DO, MIKKI Ot V70.0 10/21/2015 ROBBINS DO, MIKKI Ot 280.9 10/21/2015 CARLA VARNER, HYUN Chapa Ot Z12.31 10/21/2015 CARLA VARNER, HYUN Chapa Ot R92.8 01/25/2016 CARLA VARNER, HYUN Chapa Ot R92.8 OTH ABN AND INCONCLUSIVE FINDINGS ON DX 05/26/2016 MIKKI ROBBINS DO Ot D50.8 OTHER IRON DEFICIENCY ANEMIAS 05/26/2016 MIKKI ROBBINS DO Ot E53.8 DEFICIENCY OF OTHER SPECIFIED B GROUP 05/26/2016 MIKKI ROBBINS DO Ot Z00.00 ENCNTR FOR GENERAL ADULT MEDICAL EXAM W/ 07/09/2016 ABHIJIT BRIGGS APRN Ot S61.011A LACERATION W/O FB OF RIGHT THUMB W/O DAM 07/09/2016 ABHIJIT BRIGGS APRN Ot W27.4XXA CONTACT WITH KITCHEN UTENSIL, INITIAL EN 07/09/2016 ABHIJIT BRIGGS APRN Ot Y92.010 KITCHEN OF SINGLE-FAMILY (PRIVATE) HOUSE 07/09/2016 ABHIJIT BRIGGS APRN Ot Y93.G1 ACTIVITY, FOOD PREPARATION AND CLEAN UP 07/09/2016 ABHIJIT BRIGGS APRN Ot Y99.8 OTHER EXTERNAL CAUSE STATUS 07/09/2016 ABHIJIT BRIGGS APRN Ot Z23 ENCOUNTER FOR IMMUNIZATION 07/09/2016 Ot 462 ACUTE PHARYNGITIS 07/09/2016 Ot 530.11 REFLUX ESOPHAGITIS 07/09/2016 Ot 530.81 ESOPHAGEAL REFLUX 07/09/2016 Ot 535.50 UNSP GASTRITIS GASTRODUODENITIS W/O ME 07/09/2016 Ot 553.3 DIAPHRAGMATIC HERNIA 07/09/2016 Ot 780.57 UNSPECIFIED SLEEP APNEA 07/09/2016 Ot V76.12 OTH SCREEN MAMMO-MALIGN NEOPLASM OF MICHAEL 07/09/2016 Ot 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 07/09/2016 Ot 285.9 ANEMIA NOS 07/09/2016 Ot 511.0 PLEURISY W/O EFFUS OR TB 07/09/2016 Ot 788.1 DYSURIA 07/09/2016 Ot 790.29 OTHER ABNORMAL GLUCOSE 07/09/2016 Ot 280.9 IRON DEFIC ANEMIA NOS 07/09/2016 Ot 280.9 IRON DEFIC ANEMIA NOS 07/09/2016 Ot V76.12 OTH SCREEN MAMMO-MALIGN NEOPLASM OF MICHAEL 07/09/2016 Ot 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 07/09/2016 Ot 285.9 ANEMIA NOS 07/09/2016 Ot 780.79 OTH MALAISE FATIGUE 07/09/2016 Ot 790.29 OTHER ABNORMAL GLUCOSE 07/09/2016 MIKKI ROBBINS DO Ot V58.69 OTH MED,LT,CURRENT USE 07/09/2016 MIKKI ROBBINS DO Ot V76.12 OTH SCREEN MAMMO-MALIGN NEOPLASM OF MICHAEL 07/09/2016 MIKKI ROBBINS DO Ot 719.03 JOINT EFFUSION-FOREARM 07/09/2016 RODRÍGUEZ ROBBINS DOI Ot 719.43 JOINT PAIN-FOREARM 07/09/2016 RODRÍGUEZ ROBBINS DOI Ot 719.45 JOINT PAIN-PELVIS 07/09/2016 RODRÍGUEZ ROBBINS DOI Ot 719.47 JOINT PAIN-ANKLE 07/09/2016 RODRÍGUEZ ROBBINS DOI Ot 722.52 LUMB/LUMBOSAC DISC DEGEN 07/09/2016 RODRÍGUEZ ROBBINS DOI Ot 959.19 OTH INJURY OF OTHER SITES OF TRUNK 07/09/2016 MIKKI ROBBINS DO Ot E000.8 OTHER EXTERNAL CAUSE STATUS 07/09/2016 MIKKI ROBBINS DO Ot E006.1 ACTIVITIES INVOLVING HORSEBACK RIDING 07/09/2016 RODRÍGUEZ ROBBINS DOI Ot E828.2 RIDDEN ANIMAL ACC-RIDER 07/09/2016 MIKKI ROBBINS DO Ot V76.12 OTH SCREEN MAMMO-MALIGN NEOPLASM OF MICHAEL 07/09/2016 RODRÍGUEZ ROBBINS DOI Ot 486 PNEUMONIA, ORGANISM NOS 07/09/2016 MIKKI ROBBINS DO Ot 780.60 FEVER, UNSPECIFIED 07/09/2016 MIKKI ROBBINS DO Ot 786.07 WHEEZING 07/09/2016 RODRÍGUEZ ROBBINS DOI Ot 269.2 VITAMIN DEFICIENCY NOS 07/09/2016 RODRÍGUEZ ROBBINS DOI Ot 285.9 ANEMIA NOS 07/09/2016 RODRÍGUEZ ROBBINS DOI Ot 719.49 JOINT PAIN-MULT JTS 07/09/2016 RODRÍGUEZ ROBBINS DOI Ot 728.9 MUSCLE/LIGAMENT DIS NOS 07/09/2016 RODRÍGUEZ ROBBINS DOI Ot 729.1 MYALGIA AND MYOSITIS NOS 07/09/2016 MIKKI ROBBINS DO Ot V70.0 ROUTINE MEDICAL EXAM 07/09/2016 ROBBINS DO, MIKKI Ot 272.0 PURE HYPERCHOLESTEROLEM 07/09/2016 ROBBINSDIEGO DE LEON MIKKI Ot 280.9 IRON DEFIC ANEMIA NOS 07/09/2016 ROBBINSDIEGO DE LEON MIKKI Ot 530.81 ESOPHAGEAL REFLUX 07/09/2016 ITZEL DE LEON MIKKI Ot 719.49 JOINT PAIN-MULT JTS 07/09/2016 ITZEL DE LEON MIKKI Ot 783.1 ABNORMAL WEIGHT GAIN 07/09/2016 ROBBINSDIEGO DE LEON MIKKI Ot V58.69 OTH MED,LT,CURRENT USE 07/09/2016 ROBBINSDIEGO DE LEON MIKKI Ot V58.83 ENCOUNTER FOR THERAPEUTIC DRUG MONITORIN 07/09/2016 ITZEL DE LEON MIKKI Ot V70.0 ROUTINE MEDICAL EXAM 07/09/2016 ITZEL DE LEON MIKKI Ot 280.9 IRON DEFIC ANEMIA NOS 07/09/2016 CARLA VARNER, HYUN Chapa Ot Z12.31 ENCNTR SCREEN MAMMOGRAM FOR MALIGNANT NE 07/09/2016 CARLA VARNER, HYUN Chapa Ot R92.8 OTH ABN AND INCONCLUSIVE FINDINGS ON DX 07/09/2016 ITZEL DE LEON MIKKI Ot D50.8 OTHER IRON DEFICIENCY ANEMIAS 07/09/2016 ITZEL DE LEON MIKKI Ot E53.8 DEFICIENCY OF OTHER SPECIFIED B GROUP 07/09/2016 ITZEL DE LEON MIKKI Ot Z00.00 ENCNTR FOR GENERAL ADULT MEDICAL EXAM W/ 07/10/2016 ABHIJIT BRIGGS APRN Ot S61.011A LACERATION W/O FB OF RIGHT THUMB W/O DAM 07/10/2016 ABHIJIT BRIGGS APRN Ot W27.4XXA CONTACT WITH KITCHEN UTENSIL, INITIAL EN 07/10/2016 ABHIJIT BRIGGS APRN Ot Y92.010 KITCHEN OF SINGLE-FAMILY (PRIVATE) HOUSE 07/10/2016 ABHIJIT BRIGGS APRN Ot Y93.G1 ACTIVITY, FOOD PREPARATION AND CLEAN UP 07/10/2016 ABHIJIT BRIGGS APRN Ot Y99.8 OTHER EXTERNAL CAUSE STATUS 07/10/2016 ABHIJIT BRIGGS APRN Ot Z23 ENCOUNTER FOR IMMUNIZATION 07/10/2016 ABHIJIT BRIGGS APRN Ot S61.011A LACERATION W/O FB OF RIGHT THUMB W/O DAM 07/10/2016 ABHIJIT BRIGGS APRN Ot W27.4XXA CONTACT WITH KITCHEN UTENSIL, INITIAL EN 07/10/2016 ABHIJIT BRIGGS APRN Ot Y92.010 KITCHEN OF SINGLE-FAMILY (PRIVATE) HOUSE 07/10/2016 ABHIJIT BRIGGS APRN Ot Y93.G1 ACTIVITY, FOOD PREPARATION AND CLEAN UP 07/10/2016 ABHIJIT BRIGGS APRN Ot Y99.8 OTHER EXTERNAL CAUSE STATUS 07/10/2016 ABHIJIT BRIGGS APRN Ot Z23 ENCOUNTER FOR IMMUNIZATION 07/11/2016 ABHIJIT BRIGGS APRN Ot S61.011A LACERATION W/O FB OF RIGHT THUMB W/O DAM 07/11/2016 ABHIJIT BRIGGS APRN Ot W27.4XXA CONTACT WITH KITCHEN UTENSIL, INITIAL EN 07/11/2016 ABHIJIT BRIGGS APRN Ot Y92.010 KITCHEN OF SINGLE-FAMILY (PRIVATE) HOUSE 07/11/2016 ABHIJIT BRIGGS APRN Ot Y93.G1 ACTIVITY, FOOD PREPARATION AND CLEAN UP 07/11/2016 ABHIJIT BRIGGS APRN Ot Y99.8 OTHER EXTERNAL CAUSE STATUS 07/11/2016 ABHIJIT BRIGGS APRN Ot Z23 ENCOUNTER FOR IMMUNIZATION 07/20/2016 Ot 462 ACUTE PHARYNGITIS 07/20/2016 Ot 530.11 REFLUX ESOPHAGITIS 07/20/2016 Ot 530.81 ESOPHAGEAL REFLUX 07/20/2016 Ot 535.50 UNSP GASTRITIS GASTRODUODENITIS W/O ME 07/20/2016 Ot 553.3 DIAPHRAGMATIC HERNIA 07/20/2016 Ot 780.57 UNSPECIFIED SLEEP APNEA 07/20/2016 Ot V76.12 OTH SCREEN MAMMO-MALIGN NEOPLASM OF MICHAEL 07/20/2016 Ot 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 07/20/2016 Ot 285.9 ANEMIA NOS 07/20/2016 Ot 511.0 PLEURISY W/O EFFUS OR TB 07/20/2016 Ot 788.1 DYSURIA 07/20/2016 Ot 790.29 OTHER ABNORMAL GLUCOSE 07/20/2016 Ot 280.9 IRON DEFIC ANEMIA NOS 07/20/2016 Ot 280.9 IRON DEFIC ANEMIA NOS 07/20/2016 Ot V76.12 OTH SCREEN MAMMO-MALIGN NEOPLASM OF MICHAEL 07/20/2016 Ot 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 07/20/2016 Ot 285.9 ANEMIA NOS 07/20/2016 Ot 780.79 OTH MALAISE FATIGUE 07/20/2016 Ot 790.29 OTHER ABNORMAL GLUCOSE 07/20/2016 MIKKI ROBBINS DO Ot V58.69 OTH MED,LT,CURRENT USE 07/20/2016 MIKKI ROBBINS DO Ot V76.12 OTH SCREEN MAMMO-MALIGN NEOPLASM OF MICHAEL 07/20/2016 MIKKI ROBBINS DO Ot 719.03 JOINT EFFUSION-FOREARM 07/20/2016 RODRÍGUEZ ROBBINS DOI Ot 719.43 JOINT PAIN-FOREARM 07/20/2016 RODRÍGUEZ ROBBINS DOI Ot 719.45 JOINT PAIN-PELVIS 07/20/2016 RODRÍGUEZ ROBBINS DOI Ot 719.47 JOINT PAIN-ANKLE 07/20/2016 MIKKI ROBBINS DO Ot 722.52 LUMB/LUMBOSAC DISC DEGEN 07/20/2016 MIKKI ROBBINS DO Ot 959.19 OTH INJURY OF OTHER SITES OF TRUNK 07/20/2016 RODRÍGUEZ ROBBINS DOI Ot E000.8 OTHER EXTERNAL CAUSE STATUS 07/20/2016 MIKKI ROBBINS DO Ot E006.1 ACTIVITIES INVOLVING HORSEBACK RIDING 07/20/2016 MIKKI ROBBINS DO Ot E828.2 RIDDEN ANIMAL ACC-RIDER 07/20/2016 MIKKI ROBBINS DO Ot V76.12 OTH SCREEN MAMMO-MALIGN NEOPLASM OF MICHAEL 07/20/2016 MIKKI ROBBINS DO Ot 486 PNEUMONIA, ORGANISM NOS 07/20/2016 RODRÍGUEZ ROBBINS DOI Ot 780.60 FEVER, UNSPECIFIED 07/20/2016 RODRÍGUEZ ROBBINS DOI Ot 786.07 WHEEZING 07/20/2016 MIKKI ROBBINS DO Ot 269.2 VITAMIN DEFICIENCY NOS 07/20/2016 RODRÍGUEZ ROBBINS DOI Ot 285.9 ANEMIA NOS 07/20/2016 RODRÍGUEZ ROBBINS DOI Ot 719.49 JOINT PAIN-MULT JTS 07/20/2016 MIKKI ROBBINS DO Ot 728.9 MUSCLE/LIGAMENT DIS NOS 07/20/2016 RODRÍGUEZ ROBBINS DOI Ot 729.1 MYALGIA AND MYOSITIS NOS 07/20/2016 MIKKI ROBBINS DO Ot V70.0 ROUTINE MEDICAL EXAM 07/20/2016 RODRÍGUEZ ROBBINS DOI Ot 272.0 PURE HYPERCHOLESTEROLEM 07/20/2016 ITZEL DE LEON MIKKI Ot 280.9 IRON DEFIC ANEMIA NOS 07/20/2016 MIKKI ROBBINS DO Ot 530.81 ESOPHAGEAL REFLUX 07/20/2016 ROBBINSRODRÍGUEZ CORTEZ DOI Ot 719.49 JOINT PAIN-MULT JTS 07/20/2016 MIKKI ROBBINS DO Ot 783.1 ABNORMAL WEIGHT GAIN 07/20/2016 MIKKI ROBBINS DO Ot V58.69 OTH MED,LT,CURRENT USE 07/20/2016 ROBBINSMIKKI CORTEZ DO Ot V58.83 ENCOUNTER FOR THERAPEUTIC DRUG MONITORIN 07/20/2016 MIKKI ROBBINS DO Ot V70.0 ROUTINE MEDICAL EXAM 07/20/2016 MIKKI ROBBINS DO Ot 280.9 IRON DEFIC ANEMIA NOS 07/20/2016 CARLA VARNER, HYUN Chapa Ot Z12.31 ENCNTR SCREEN MAMMOGRAM FOR MALIGNANT NE 07/20/2016 CARLA VARNER, HYUN Chapa Ot R92.8 OTH ABN AND INCONCLUSIVE FINDINGS ON DX 07/20/2016 MIKKI ROBBINS DO Ot D50.8 OTHER IRON DEFICIENCY ANEMIAS 07/20/2016 MIKKI ROBBINS DO Ot E53.8 DEFICIENCY OF OTHER SPECIFIED B GROUP 07/20/2016 ITZEL DE LEON MIKKI Ot Z00.00 ENCNTR FOR GENERAL ADULT MEDICAL EXAM W/ 07/21/2016 MIKKI ROBBINS DO Ot E66.01 MORBID (SEVERE) OBESITY DUE TO EXCESS CA 07/21/2016 ITZEL DE LEON MIKKI Ot G47.30 SLEEP APNEA, UNSPECIFIED 07/21/2016 MIKKI ROBBINS DO Ot K21.9 GASTRO-ESOPHAGEAL REFLUX DISEASE WITHOUT 07/21/2016 MIKKI ROBBINS DO Ot R10.11 RIGHT UPPER QUADRANT PAIN 07/21/2016 MIKKI ROBBINS DO Ot R11.2 NAUSEA WITH VOMITING, UNSPECIFIED 07/21/2016 MIKKI ROBBINS DO Ot Z68.36 BODY MASS INDEX (BMI) 36.0-36.9, ADULT 03/18/2017 Ot 462 ACUTE PHARYNGITIS 03/18/2017 Ot 530.11 REFLUX ESOPHAGITIS 03/18/2017 Ot 530.81 ESOPHAGEAL REFLUX 03/18/2017 Ot 535.50 UNSP GASTRITIS GASTRODUODENITIS W/O ME 03/18/2017 Ot 553.3 DIAPHRAGMATIC HERNIA 03/18/2017 Ot 780.57 UNSPECIFIED SLEEP APNEA 03/18/2017 Ot 280.9 IRON DEFIC ANEMIA NOS 03/18/2017 Ot V76.12 OTH SCREEN MAMMO-MALIGN NEOPLASM OF MICHAEL 03/18/2017 Ot 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 03/18/2017 Ot 285.9 ANEMIA NOS 03/18/2017 Ot 780.79 OTH MALAISE FATIGUE 03/18/2017 Ot 790.29 OTHER ABNORMAL GLUCOSE 03/18/2017 MIKKI ROBBINS DO Ot V58.69 OTH MED,LT,CURRENT USE 03/18/2017 MIKKI ROBBINS DO Ot V76.12 OTH SCREEN MAMMO-MALIGN NEOPLASM OF MICHAEL 03/18/2017 MIKKI ROBBINS DO Ot 719.03 JOINT EFFUSION-FOREARM 03/18/2017 MIKKI ROBBINS DO Ot 719.43 JOINT PAIN-FOREARM 03/18/2017 MIKKI ROBBINS DO Ot 719.45 JOINT PAIN-PELVIS 03/18/2017 MIKKI ROBBINS DO Ot 719.47 JOINT PAIN-ANKLE 03/18/2017 MIKKI ROBBINS DO Ot 722.52 LUMB/LUMBOSAC DISC DEGEN 03/18/2017 MIKKI ROBBINS DO Ot 959.19 OTH INJURY OF OTHER SITES OF TRUNK 03/18/2017 MIKKI ROBBINS DO Ot E000.8 OTHER EXTERNAL CAUSE STATUS 03/18/2017 MIKKI ROBBINS DO Ot E006.1 ACTIVITIES INVOLVING HORSEBACK RIDING 03/18/2017 MIKKI ROBBINS DO Ot E828.2 RIDDEN ANIMAL ACC-RIDER 03/18/2017 MIKKI ROBBINS DO Ot V76.12 OTH SCREEN MAMMO-MALIGN NEOPLASM OF MICHAEL 03/18/2017 MIKKI ROBBINS DO Ot 486 PNEUMONIA, ORGANISM NOS 03/18/2017 MIKKI ROBBINS DO Ot 780.60 FEVER, UNSPECIFIED 03/18/2017 MIKKI ROBBINS DO Ot 786.07 WHEEZING 03/18/2017 MIKKI ROBBINS DO Ot 269.2 VITAMIN DEFICIENCY NOS 03/18/2017 MIKKI ROBBINS DO Ot 285.9 ANEMIA NOS 03/18/2017 MIKKI ROBBINS DO Ot 719.49 JOINT PAIN-MULT JTS 03/18/2017 MIKKI ROBBINS DO Ot 728.9 MUSCLE/LIGAMENT DIS NOS 03/18/2017 MIKKI ROBBINS DO Ot 729.1 MYALGIA AND MYOSITIS NOS 03/18/2017 ITZEL DO MIKKI Ot V70.0 ROUTINE MEDICAL EXAM 03/18/2017 ITZEL RODRÍGUEZ DE LEONI Ot 272.0 PURE HYPERCHOLESTEROLEM 03/18/2017 ITZEL DE LEON MIKKI Ot 280.9 IRON DEFIC ANEMIA NOS 03/18/2017 ITZEL DE LEON MIKKI Ot 530.81 ESOPHAGEAL REFLUX 03/18/2017 ITZEL DO MIKKI Ot 719.49 JOINT PAIN-MULT JTS 03/18/2017 ROBBINS DO MIKKI Ot 783.1 ABNORMAL WEIGHT GAIN 03/18/2017 ROBBINS DO MIKKI Ot V58.69 OTH MED,LT,CURRENT USE 03/18/2017 ITZEL DO MIKKI Ot V58.83 ENCOUNTER FOR THERAPEUTIC DRUG MONITORIN 03/18/2017 ROBBINS DO MIKKI Ot V70.0 ROUTINE MEDICAL EXAM 03/18/2017 ITZEL DE LEON MIKKI Ot 280.9 IRON DEFIC ANEMIA NOS 03/18/2017 HYUN AGUIRRE MD, Ot Z12.31 ENCNTR SCREEN MAMMOGRAM FOR MALIGNANT NE 03/18/2017 HYUN AGUIRRE MD, Ot R92.8 OTH ABN AND INCONCLUSIVE FINDINGS ON DX 03/18/2017 ROBBINSDIEGO DE LEON MIKKI Ot D50.8 OTHER IRON DEFICIENCY ANEMIAS 03/18/2017 ITZEL DE LEON MIKKI Ot E53.8 DEFICIENCY OF OTHER SPECIFIED B GROUP 03/18/2017 ROBBINSDIEGO DE LEON MIKKI Ot Z00.00 ENCNTR FOR GENERAL ADULT MEDICAL EXAM W/ 04/12/2017 HYUN AGUIRRE MD, Ot Z12.31 ENCNTR SCREEN MAMMOGRAM FOR MALIGNANT NE 06/02/2017 ITZEL DE LEON MIKKI Ot E78.00 PURE HYPERCHOLESTEROLEMIA, UNSPECIFIED 06/02/2017 ITZEL DE LEON MIKKI Ot E78.1 PURE HYPERGLYCERIDEMIA 11/09/2017 ITZEL DE LEON MIKKI Ot E78.00 PURE HYPERCHOLESTEROLEMIA, UNSPECIFIED 11/09/2017 ITZEL DE LEON MIKKI Ot E78.1 PURE HYPERGLYCERIDEMIA 11/09/2017 ITZEL DE LEON MIKKI Ot Z00.00 ENCNTR FOR GENERAL ADULT MEDICAL EXAM W/ 11/26/2017 EVAN KOVACS MANUFACTURING BAKER Ot K21.9 GASTRO-ESOPHAGEAL REFLUX DISEASE WITHOUT 11/26/2017 EVAN KOVACS MANUFACTURING BAKER Ot Z98.84 BARIATRIC SURGERY STATUS 12/01/2017 EVAN KOVACS MANUFACTURING BAKER Ot K21.9 GASTRO-ESOPHAGEAL REFLUX DISEASE WITHOUT 12/01/2017 EVAN KOVACS MANUFACTURING BAKER Ot Z98.84 BARIATRIC SURGERY STATUS 12/08/2017 EVAN KOVACS MANUFACTURING BAKER Ot K21.9 GASTRO-ESOPHAGEAL REFLUX DISEASE WITHOUT 12/08/2017 EVAN KOVACS MANUFACTURING BAKER Ot Z98.84 BARIATRIC SURGERY STATUS 02/21/2018 ROBBINS DO, MIKKI Ot E78.00 PURE HYPERCHOLESTEROLEMIA, UNSPECIFIED 02/21/2018 ROBBINS DO, MIKKI Ot E78.1 PURE HYPERGLYCERIDEMIA 02/21/2018 ROBBINS DO, MIKKI Ot Z00.00 ENCNTR FOR GENERAL ADULT MEDICAL EXAM W/ 07/18/2018 ASHVIN WILSON DPM Ot Z01.818 ENCOUNTER FOR OTHER PREPROCEDURAL EXAMIN 07/20/2018 ROBBINS DO, MIKKI Ot E78.00 PURE HYPERCHOLESTEROLEMIA, UNSPECIFIED 07/20/2018 ROBBINS DO, MIKKI Ot E78.1 PURE HYPERGLYCERIDEMIA 07/20/2018 ROBBINS DO, MIKKI Ot Z00.00 ENCNTR FOR GENERAL ADULT MEDICAL EXAM W/ 07/20/2018 EVAN KOVACS MANUFACTURING BAKER Ot K21.9 GASTRO-ESOPHAGEAL REFLUX DISEASE WITHOUT 07/20/2018 EVAN KOVACS MANUFACTURING BAKER Ot Z98.84 BARIATRIC SURGERY STATUS Procedures There is no data. Results Test Result Range Complete blood count (CBC) with automated white blood cell (WBC) differential - 05/22/16 10:09 Blood leukocytes automated count (number/volume) 7.0 10*3/uL 4.3-11.0 Blood erythrocytes automated count (number/volume) 3.83 10*6/uL 4.35-5.85 Venous blood hemoglobin measurement (mass/volume) 12.4 g/dL 11.5-16.0 Blood hematocrit (volume fraction) 36 % 35-52 Automated erythrocyte mean corpuscular volume 94 [foz_us] 80-99 Automated erythrocyte mean corpuscular hemoglobin (mass per erythrocyte) 32 pg 25-34 Automated erythrocyte mean corpuscular hemoglobin concentration measurement ( mass/volume) 35 g/dL 32-36 Automated erythrocyte distribution width ratio 12.7 % 10.0-14.5 Automated blood platelet count (count/volume) 267 10*3/uL 130-400 Automated blood platelet mean volume measurement 10.1 [foz_us] 7.4-10.4 Automated blood neutrophils/100 leukocytes 62 % 42-75 Automated blood lymphocytes/100 leukocytes 31 % 12-44 Blood monocytes/100 leukocytes 6 % 0-12 Automated blood eosinophils/100 leukocytes 1 % 0-10 Automated blood basophils/100 leukocytes 0 % 0-10 Blood neutrophils automated count (number/volume) 4.3 10*3 1.8-7.8 Blood lymphocytes automated count (number/volume) 2.2 10*3 1.0-4.0 Blood monocytes automated count (number/volume) 0.4 10*3 0.0-1.0 Automated eosinophil count 0.1 10*3/uL 0.0-0.3 Automated blood basophil count (count/volume) 0.0 10*3/uL 0.0-0.1 Comprehensive metabolic panel - 05/22/16 10:09 Serum or plasma sodium measurement (moles/volume) 139 mmol/L 135-145 Serum or plasma potassium measurement (moles/volume) 3.8 mmol/L 3.6-5.0 Serum or plasma chloride measurement (moles/volume) 107 mmol/L 98-107 Carbon dioxide 22 mmol/L 21-32 Serum or plasma anion gap determination (moles/volume) 10 mmol/L 5-14 Serum or plasma urea nitrogen measurement (mass/volume) 15 mg/dL 7-18 Serum or plasma creatinine measurement (mass/volume) 0.84 mg/dL 0.60-1.30 Serum or plasma urea nitrogen/creatinine mass ratio 18 NRG Serum or plasma creatinine measurement with calculation of estimated glomerular filtration rate > NRG Serum or plasma glucose measurement (mass/volume) 86 mg/dL 70-105 Serum or plasma calcium measurement (mass/volume) 9.0 mg/dL 8.5-10.1 Serum or plasma total bilirubin measurement (mass/volume) 1.3 mg/dL 0.1-1.0 Serum or plasma alkaline phosphatase measurement (enzymatic activity/volume) 61 U/L 40-136 Serum or plasma aspartate aminotransferase measurement (enzymatic activity/ volume) 13 U/L 5-34 Serum or plasma alanine aminotransferase measurement (enzymatic activity/volume ) 13 U/L 0-55 Serum or plasma protein measurement (mass/volume) 6.7 g/dL 6.4-8.2 Serum or plasma albumin measurement (mass/volume) 4.0 g/dL 3.2-4.5 Lipid 1996 panel - 05/22/16 10:09 Serum or plasma triglyceride measurement (mass/volume) 175 mg/dL <150 Serum or plasma cholesterol measurement (mass/volume) 255 mg/dL < 200 Serum or plasma cholesterol in HDL measurement (mass/volume) 67 mg/ dL 40-60 Cholesterol in LDL [mass/volume] in serum or plasma by direct assay 173 mg/dL 1-129 Serum or plasma cholesterol in VLDL measurement (mass/volume) 35 mg/ dL 5-40 THYROID STIMULATING HORMONE - 05/22/16 10:09 THYROID STIMULATING HORMONE 0.77 u[iU]/mL 0.35-4.94 Serum iron and total iron binding capacity panel - 05/22/16 10:09 Serum or plasma iron measurement (mass/volume) 85 % 35- 180 Total iron binding capacity and transferrin saturation measurement 24 % 15-50 Iron binding capacity [mass/volume] in serum or plasma 356 % 280-380 UIBC (unsaturated iron binding capacity) 271 % 55-450 Serum or plasma ferritin measurement (mass/volume) 29 % 15-150 Cyanocobalamin measurement - 05/22/16 10:09 Vitamin B12 505 pg/mL 200-1000 Complete blood count (CBC) with automated white blood cell (WBC) differential - 07/20/16 16:50 Blood leukocytes automated count (number/volume) 5.7 10*3/uL 4.3-11.0 Blood erythrocytes automated count (number/volume) 4.11 10*6/uL 4.35-5.85 Venous blood hemoglobin measurement (mass/volume) 13.1 g/dL 11.5-16.0 Blood hematocrit (volume fraction) 38 % 35-52 Automated erythrocyte mean corpuscular volume 93 [foz_us] 80-99 Automated erythrocyte mean corpuscular hemoglobin (mass per erythrocyte) 32 pg 25-34 Automated erythrocyte mean corpuscular hemoglobin concentration measurement ( mass/volume) 34 g/dL 32-36 Automated erythrocyte distribution width ratio 12.1 % 10.0-14.5 Automated blood platelet count (count/volume) 239 10*3/uL 130-400 Automated blood platelet mean volume measurement 10.1 [foz_us] 7.4-10.4 Automated blood neutrophils/100 leukocytes 51 % 42-75 Automated blood lymphocytes/100 leukocytes 40 % 12-44 Blood monocytes/100 leukocytes 7 % 0-12 Automated blood eosinophils/100 leukocytes 1 % 0-10 Automated blood basophils/100 leukocytes 0 % 0-10 Blood neutrophils automated count (number/volume) 2.9 10*3 1.8-7.8 Blood lymphocytes automated count (number/volume) 2.3 10*3 1.0-4.0 Blood monocytes automated count (number/volume) 0.4 10*3 0.0-1.0 Automated eosinophil count 0.1 10*3/uL 0.0-0.3 Automated blood basophil count (count/volume) 0.0 10*3/uL 0.0-0.1 Erythrocyte sedimentation rate by westergren method - 07/20/16 16:50 Erythrocyte sedimentation rate by westergren method 16 mm 0-20 Comprehensive metabolic panel - 07/20/16 16:50 Serum or plasma sodium measurement (moles/volume) 141 mmol/L 135-145 Serum or plasma potassium measurement (moles/volume) 4.1 mmol/L 3.6-5.0 Serum or plasma chloride measurement (moles/volume) 106 mmol/L 98-107 Carbon dioxide 30 mmol/L 21-32 Serum or plasma anion gap determination (moles/volume) 5 mmol/L 5-14 Serum or plasma urea nitrogen measurement (mass/volume) 11 mg/dL 7-18 Serum or plasma creatinine measurement (mass/volume) 0.81 mg/dL 0.60-1.30 Serum or plasma urea nitrogen/creatinine mass ratio 14 NRG Serum or plasma creatinine measurement with calculation of estimated glomerular filtration rate > NRG Serum or plasma glucose measurement (mass/volume) 91 mg/dL 70-105 Serum or plasma calcium measurement (mass/volume) 9.0 mg/dL 8.5-10.1 Serum or plasma total bilirubin measurement (mass/volume) 1.0 mg/dL 0.1-1.0 Serum or plasma alkaline phosphatase measurement (enzymatic activity/volume) 71 U/L 40-136 Serum or plasma aspartate aminotransferase measurement (enzymatic activity/ volume) 15 U/L 5-34 Serum or plasma alanine aminotransferase measurement (enzymatic activity/volume ) 15 U/L 0-55 Serum or plasma protein measurement (mass/volume) 7.0 g/dL 6.4-8.2 Serum or plasma albumin measurement (mass/volume) 4.3 g/dL 3.2-4.5 Serum or plasma amylase measurement (enzymatic activity/volume) - 07/20/16 16: 50 Serum or plasma amylase measurement (enzymatic activity/volume) 102 U/L 25-125 Lipase - 07/20/16 16:50 Lipase 39 U/L 8-78 Complete urinalysis with reflex to culture - 07/20/16 23:30 Urine color determination YELLOW NRG Urine clarity determination CLEAR NRG Urine pH measurement by test strip 8 5-9 Specific gravity of urine by test strip 1.010 1.016- 1.022 Urine protein assay by test strip, semi-quantitative 1+ NEGATIVE Urine glucose detection by automated test strip NEGATIVE NEGATIVE Erythrocytes detection in urine sediment by light microscopy 1+ NEGATIVE Urine ketones detection by automated test strip NEGATIVE NEGATIVE Urine nitrite detection by test strip NEGATIVE NEGATIVE Urine total bilirubin detection by test strip NEGATIVE NEGATIVE Urine urobilinogen measurement by automated test strip (mass/volume) NORMAL NORMAL Urine leukocyte esterase detection by dipstick 1+ NEGATIVE Automated urine sediment erythrocyte count by microscopy (number/high power field) [HPF] NRG Automated urine sediment leukocyte count by microscopy (number/high power field ) [HPF] NRG Bacteria detection in urine sediment by light microscopy TRACE NRG Squamous epithelial cells detection in urine sediment by light microscopy 0-2 NRG Crystals detection in urine sediment by light microscopy NONE NRG Casts detection in urine sediment by light microscopy NONE NRG Mucus detection in urine sediment by light microscopy NEGATIVE NRG Complete urinalysis with reflex to culture YES NRG Bacterial urine culture - 07/20/16 23:30 Bacterial urine culture [id number] NRG COLONY COUNT <10,000 NRG FTX;REPORTABLE ID/SENSITIVITY TO FOLLOW NRG Complete blood count (CBC) with automated white blood cell (WBC) differential - 05/21/17 09:51 Blood leukocytes automated count (number/volume) 6.4 10*3/uL 4.3-11.0 Blood erythrocytes automated count (number/volume) 4.25 10*6/uL 4.35-5.85 Venous blood hemoglobin measurement (mass/volume) 12.6 g/dL 11.5-16.0 Blood hematocrit (volume fraction) 38 % 35-52 Automated erythrocyte mean corpuscular volume 89 [foz_us] 80-99 Automated erythrocyte mean corpuscular hemoglobin (mass per erythrocyte) 30 pg 25-34 Automated erythrocyte mean corpuscular hemoglobin concentration measurement ( mass/volume) 33 g/dL 32-36 Automated erythrocyte distribution width ratio 13.0 % 10.0-14.5 Automated blood platelet count (count/volume) 301 10*3/uL 130-400 Automated blood platelet mean volume measurement 9.9 [foz_us] 7.4-10.4 Automated blood neutrophils/100 leukocytes 63 % 42-75 Automated blood lymphocytes/100 leukocytes 28 % 12-44 Blood monocytes/100 leukocytes 8 % 0-12 Automated blood eosinophils/100 leukocytes 2 % 0-10 Automated blood basophils/100 leukocytes 0 % 0-10 Blood neutrophils automated count (number/volume) 4.0 10*3 1.8-7.8 Blood lymphocytes automated count (number/volume) 1.8 10*3 1.0-4.0 Blood monocytes automated count (number/volume) 0.5 10*3 0.0-1.0 Automated eosinophil count 0.1 10*3/uL 0.0-0.3 Automated blood basophil count (count/volume) 0.0 10*3/uL 0.0-0.1 Comprehensive metabolic panel - 05/21/17 09:51 Serum or plasma sodium measurement (moles/volume) 140 mmol/L 135-145 Serum or plasma potassium measurement (moles/volume) 3.9 mmol/L 3.6-5.0 Serum or plasma chloride measurement (moles/volume) 105 mmol/L 98-107 Carbon dioxide 25 mmol/L 21-32 Serum or plasma anion gap determination (moles/volume) 10 mmol/L 5-14 Serum or plasma urea nitrogen measurement (mass/volume) 18 mg/dL 7-18 Serum or plasma creatinine measurement (mass/volume) 0.78 mg/dL 0.60-1.30 Serum or plasma urea nitrogen/creatinine mass ratio 23 NRG Serum or plasma creatinine measurement with calculation of estimated glomerular filtration rate > NRG Serum or plasma glucose measurement (mass/volume) 98 mg/dL 70-105 Serum or plasma calcium measurement (mass/volume) 9.4 mg/dL 8.5-10.1 Serum or plasma total bilirubin measurement (mass/volume) 1.1 mg/dL 0.1-1.0 Serum or plasma alkaline phosphatase measurement (enzymatic activity/volume) 69 U/L 40-136 Serum or plasma aspartate aminotransferase measurement (enzymatic activity/ volume) 15 U/L 5-34 Serum or plasma alanine aminotransferase measurement (enzymatic activity/volume ) 12 U/L 0-55 Serum or plasma protein measurement (mass/volume) 7.3 g/dL 6.4-8.2 Serum or plasma albumin measurement (mass/volume) 4.2 g/dL 3.2-4.5 Lipid 1996 panel - 05/21/17 09:51 Serum or plasma triglyceride measurement (mass/volume) 70 mg/dL <150 Serum or plasma cholesterol measurement (mass/volume) 234 mg/dL < 200 Serum or plasma cholesterol in HDL measurement (mass/volume) 75 mg/ dL 40-60 Cholesterol in LDL [mass/volume] in serum or plasma by direct assay 159 mg/dL 1-129 Serum or plasma cholesterol in VLDL measurement (mass/volume) 14 mg/ dL 5-40 THYROID STIMULATING HORMONE - 05/21/17 09:51 THYROID STIMULATING HORMONE 0.77 u[iU]/mL 0.35-4.94 Encounters ACCT No. Visit Date/Time Discharge Status Pt. Type Provider Facility Loc./Unit Complaint [id number] 07/18/2018 05:36:00 07/18/2018 12:02:00 DIS Outpatient ASHVIN WILSON DPM Via [facility] PREOP PLANTAR FASCIITIS LEFT FOOT [id number] 2017 09:29:00 2017 23:59:59 CLS Outpatient EVAN KOVACS APRN [facility] RAD REFLUX [id number] 05/21/2017 09:37:00 05/21/2017 23:59:59 CLS Outpatient MIKKI ROBBINS DO [facility] LAB E78.0,E78.1,Z00.00 [id number] 03/25/2017 10:37:00 03/25/2017 23:59:59 CLS Outpatient HYUN AGUIRRE MD [facility] RAD SCREENING Z12.31 [id number] 07/20/2016 15:18:00 07/21/2016 15:00:00 DIS Inpatient MIKKI ROBBINS DO [facility] 4TH RUQ PAIN [id number] 07/09/2016 17:05:00 07/09/2016 17:33:00 DIS Emergency ABHIJIT BRIGGS [employer]UFACTURING BAKER [facility] ER RIGHT FINGER LAC [id number] 05/22/2016 09:56:00 05/22/2016 23:59:59 CLS Outpatient ROBBINS DO, MIKKI [facility] LAB GENERAL MEDICAL EXAM, IRON DEFICIENCY [id number] 09/23/2015 13:57:00 09/23/2015 23:59:59 CLS Outpatient HYUN AGUIRRE MD [facility] RAD ABNORMAL MAMMOGRAM [id number] 08/20/2015 14:41:00 08/20/2015 23:59:59 CLS Outpatient HYUN AGUIRRE MD [facility] RAD SCREENING [id number] 04/15/2015 00:10:00 04/15/2015 23:59:59 CLS Preadmit ROBBINS DO, MIKKI Via [facility] SEVERE IRON DEFICIENCY UNABLE TO TOLORATE ORAL IRO [id number] 01/18/2015 12:59:00 04/14/2015 00:01:00 DIS Outpatient ROBBINS DO, MIKKI Via [facility] SEVERE IRON DEFICIENCY UNABLE TO TOLORATE ORAL IRO [id number] 02/21/2015 14:20:00 02/21/2015 23:59:59 CLS Outpatient ROBBINS DO, MIKKI [facility] LAB WT GAIN,ANEMIA, HYPERCHLESTEROLEMIA,POLYARTHRALGIA, [id number] 12/19/2014 08:07:00 12/19/2014 23:59:59 CLS Outpatient ROBBINS DO, MIKKI [facility] LAB HEALTH SCREENING [id number] 08/10/2014 10:16:00 08/10/2014 23:59:59 CLS Outpatient ROBBINS DO, MIKKI [facility] RAD SCREENING [id number] 07/30/2014 14:54:00 07/30/2014 23:59:59 CLS Outpatient ROBBINS DO, MIKKI [facility] RAD WHEEZING,PNUEMONIA , FEVER [id number] 08/22/2013 15:32:00 08/22/2013 23:59:59 CLS Outpatient ITZEL DE LEON MIKKI [facility] RAD PAIN IN ALL SITE OF XRAYS [id number] 08/04/2013 07:28:00 08/04/2013 23:59:59 CLS Outpatient ITZEL DE LEON MIKKI [facility] RAD SCREENING,VIT B,ANEMIA [id number] 07/22/2018 05:52:00 ACT Outpatient ASHVIN WILSON DPM Via [facility] PLANTAR FASCIITIS LEFT FOOT [id number] 09/23/2015 13:58:00 Document Registration [id number] 08/09/2012 07:24:00 Document Registration [id number] 08/05/2012 07:27:00 Document Registration [id number] 11/09/2011 00:00:00 Document Registration [id number] 09/04/2011 14:37:00 Document Registration [id number] 08/19/2011 08:17:00 Document Registration [id number] 08/08/2011 13:27:00 Document Registration [id number] 07/30/2011 10:14:00 Document Registration [id number] 07/30/2011 07:58:00 Document Registration [id number] 08/08/2010 08:18:00 Document Registration [id number] 08/01/2010 07:50:00 Document Registration [id number] 10/03/2009 09:46:00 Document Registration
[2018-07-22] MEDS ORDERED: LACTATED RINGERS 1,000 ML IV PRN (06:18)
[2018-07-22 06:30] VITALS: BP 136/90
[2018-07-22] MEDS ORDERED: ceFAZolin INJECTION 1,000 MG in NS (IVPB) 50 ML IV ONE (06:30)
[2018-07-22] MEDS ORDERED: CATHETER FLUSH 10 ML SYR IV PRN (06:45)
[2018-07-22] MEDS ORDERED: LIDOCAINE PF 2% 5 ML (XYLOCAINE) VIAL ONE (07:13)
[2018-07-22] MEDS ORDERED: DEXAMETHASONE 10 MG/ML (DECADRON) 1 ML VIAL ONE ×2 (07:13→07:14)
[2018-07-22] MEDS ORDERED: MEPIVACAINE (CARBOCAINE) 2% 50 ML VIAL ONE (07:13)
[2018-07-22] MEDS ORDERED: BUPIVACAINE 0.25% 30 ML (SENSORCAINE) VIAL ONE (07:13)
[2018-07-22] MEDS ORDERED: proPOfol 200 MG/20 ML (DIPRIVAN) VIAL IV ONE ×2 (07:13→07:59)
[2018-07-22] MEDS ORDERED: ONDANSETRON 4 MG/2 ML (SDV) Z0FRAN ONE (07:13)
[2018-07-22] MEDS ORDERED: MIDAZOLAM 2 MG/2 ML (VERSED) VIAL ONE (07:14)
[2018-07-22] MEDS ORDERED: fentaNYL INJECTION 100 MCG/2 ML AMP ONE (07:14)
[2018-07-22] MEDS ORDERED: SEVOFLURANE (ULTANE) 15 ML INHAL SOLN ONE ×4 (07:20→08:19)
--- NOTE | 2018-07-22 07:32 | Progress Note-Pre Operative ---
Pre-Operative Progress Note H&P Reviewed The H&P was reviewed, patient examined and no changes noted. Date Seen by Provider: Jul 22, 2018 Time Seen by Provider: 07:30 Date H&P Reviewed: Jul 22, 2018 Time H&P Reviewed: 07:30 Pre-Operative Diagnosis: plantar fascitis left foot. ASHVIN WILSON DPM Jul 22, 2018 7:32 am
--- NOTE | 2018-07-22 08:52 | Progress Note-Post Operative ---
Post-Operative Progess Note Surgeon (s)/Technology Analyst (s) Surgeon ASHVIN WILSON DPM Technology Analyst: none Pre-Operative Diagnosis plantar fascitis left foot. Post-Operative Diagnosis same Procedure & Operative Findings Date of Procedure 07/22/18 Procedure Performed/Findings endoscopic plantar fasciotomy ledft foot Anesthesia Type general with infiltration Estimated Blood Loss Estimated blood loss (mL): min Specimens/Packing Specimens Removed none Packing: none ASHVIN WILSON DPM Jul 22, 2018 8:52 am
[2018-07-22] MEDS ORDERED: LACTATED RINGERS 1,000 ML IV SCH (08:53)
--- NOTE | 2018-07-22 08:53 | Discharge Instructions ---
Discharge Instructions Discharge Medications New, Converted or Re-Newed RX: RX Given to Pt/Family Patient Instructions Patient Instructions 1. Follow up in office in 2 weeks. 2. Diet as tolerated. 3. Activity as tolerated. Activity & Diet Activity as Tolerated: Yes ASHVIN WILSON DPM Jul 22, 2018 8:53 am
[2018-07-22] MEDS ORDERED: HYDROcodone/APAP 5 MG/325 MG (LORTAB) TAB PO PRN (09:00)
[2018-07-22 09:20] VITALS: BP 128/94
[2018-07-22 09:50] VITALS: BP 140/82
--- NOTE | 2018-07-22 10:05 | Physical Therapy Ortho Eval ---
PT Orthopedic Evaluation Type of Surgery plantar fasciitis Prior Level of Function Current Living Status: Children (19 year old son) Locomotion (Upon Admit): Independent Established Durable Medical Eq: Crutches Subjective Subjective Agreeable to PT. Reports she has crutches at home. Entry Into Home: Stairs Without Railing Steps Into Home: 3 Motor Control Motor Control: Motor Control WNL ROM ROM: WFL Strength Strength: WFL Transfer Transfers (B, C, W/C) (FIM): 5 (6 post treatment) Gait Gait Assistive Device: Crutches Right Lower Extremity: Right Weight Bearing Status RLE: Full Weight Bearing Left Lower Extremity: Left Weight Bearing Status LLE: Full Weight Bearing Education in FWB status, pt verbalized understanding. Gait (FIM): 5 (6 post treatment) Distance (FIM): 3=150 ft Summary/Comments Safe with gait using crutches. Safe to go up/down a step with crutches. Demonstrated correct sequencing. Treatment Rendered Treatment: Gait Train, Step Train Assessment/Goals Goal Time Frame: 1 Visit Safe Ambulation: Yes Plan Treatment Plan: Discharge PT/Family Agrees to Plan: Yes Time Time In: 932 Time Out: 956 Total Billed Treatment Time: 24 Billed Treatment Time visit EVL 24 No RALPH CORTEZ PT Jul 22, 2018 10:05
[2018-07-22 10:20] VITALS: BP 138/79
--- NOTE | 2018-07-22 17:35 | OPERATIVE REPORT ---
DATE OF SERVICE: 07/22/2018 PREOPERATIVE DIAGNOSIS: Plantar fasciitis, left foot. POSTOPERATIVE DIAGNOSIS: Plantar fasciitis, left foot. NAME OF OPERATION: Endoscopic plantar fasciotomy, left foot. DESCRIPTION OF PROCEDURE: With the patient in supine position, having been affected by general anesthetic. Sterile prep and drape were performed. Donnie bandage was applied above the left ankle. Appropriate measurements were taken and a 1 cm incision was made medially at the heel. This was deepened with sharp and blunt dissection. Channeling instrument was used to fashion a channel medially to laterally. Cannula and trocar were then placed in this channel and the endoscope was placed. Medial and lateral margins of the middle slip of the plantar fascia were identified. A hook knife was then introduced to release the middle slip of the plantar fascia. This was confirmed on palpation and through visual exam through the endoscope, the area was inspected for any other anatomical abnormalities, none were noted. The cannula was removed and one horizontal mattress incision was placed medially and laterally at the entry and exit wound. The tourniquet was released. Blood flow returned to the digits was within normal limits. The surgical site was infiltrated with approximately 10 mL of 50:50 mixture of 0.5% Marcaine plain and 1% Carbocaine plain and also 1 mL of Decadron was introduced into the operative site. Adaptic and a sterile corrective compressive wet to dry Betadine dressing were applied carried above the level of the ankle covered with circular Coban. The patient tolerated the procedure well with minimal blood loss, left the OR to PAR in apparent good condition. She is to be seen in the office in 2 weeks for appropriate followup care. She has an Rx for Lortab 5 in her possession #24. Job ID: [id number] DocumentID: [id number] Dictated Date: 07/22/2018 09:02:37 [employer] Date: 07/22/2018 17:34:32 Dictated By: ASHVIN WILSON DPM
== END 2018-07-22 10:35 | disposition home or self-care (01) ==
LOC: SDC 05:52
PROVIDERS: ATTEND Podiatrist Foot Surgery
DX: M72.2 Plantar fascial fibromatosis (principal); Z11.2 Encounter for screening for other bacterial diseases; Z98.84 Bariatric surgery status; Z68.41 Body mass index [BMI] 40.0-44.9, adult; E66.09 Other obesity due to excess calories; R03.0 Elevated blood-pressure reading, without diagnosis of hypertension; K21.9 Gastro-esophageal reflux disease without esophagitis
CPT/HCPCS: 84703; 87081

== ENCOUNTER → 2018-08-18 | Outpatient (CLI) | payer BC ==
--- NOTE | 2018-08-18 18:38 | Diagnostic Imaging Report ---
INDICATION: Routine screening. Comparison is made with prior mammograms from 03/25/2017 and 08/20/2015. 2-D and 3-D bilateral screening mammography was performed with computer-aided detection (CAD) system. FINDINGS: Scattered fibroglandular densities are identified bilaterally. A focal irregular asymmetric density in the medial aspect of the right breast appears stable. No dominant mass or malignant-appearing microcalcifications are seen. Axillae are unremarkable. IMPRESSION: No mammographic features suspicious for malignancy are identified. ACR BI-RADS Category 2: Benign findings. Result letter will be mailed to the patient. Note: At least 10% of breast cancer is not imaged by mammography. Dictated by: Dictated on workstation # [id number]
== END ==
LOC: RAD 15:03
PROVIDERS: ATTEND Obstetrics & Gynecology
DX: Z12.31 Encounter for screening mammogram for malignant neoplasm of breast (principal)
CPT/HCPCS: 77067

== ENCOUNTER → 2018-10-05 | Outpatient (CLI) | payer BC ==
[2018-10-05 12:44] LABS: BASOPHILS % (AUTO) 0 % (0-10); EOSINOPHILS # (AUTO) 0.1 10^3/uL (0.0-0.3); EOSINOPHILS % (AUTO) 1 % (0-10); HEMATOCRIT 37 % (35-52); HEMOGLOBIN 11.8 G/DL (11.5-16.0); LYMPHOCYTES # (AUTO) 1.8 X 10^3 (1.0-4.0); LYMPHOCYTES % (AUTO) 22 % (12-44); MEAN CORPUSCULAR HEMOGLOBIN 28 PG (25-34); MEAN CORPUSCULAR HGB CONC 32 G/DL (32-36); MEAN CORPUSCULAR VOLUME 87 FL (80-99); MONOCYTES # (AUTO) 0.8 X 10^3 (0.0-1.0); MONOCYTES % (AUTO) 9 % (0-12); NEUTROPHILS # (AUTO) 5.7 X 10^3 (1.8-7.8); NEUTROPHILS % (AUTO) 68 % (42-75); PLATELET COUNT 360 10^3/uL (130-400); RED BLOOD COUNT 4.25 10^6/uL (4.35-5.85); RED CELL DISTRIBUTION WIDTH 13.5 % (10.0-14.5); WHITE BLOOD COUNT 8.3 10^3/uL (4.3-11.0)
[2018-10-05 13:02] LABS: ALANINE AMINOTRANSFERASE 10 U/L (0-55); ALBUMIN 4.1 GM/DL (3.2-4.5); ALKALINE PHOSPHATASE 99 U/L (40-136); BILIRUBIN,TOTAL 0.7 MG/DL (0.1-1.0); BUN/CREATININE RATIO 22; CALCIUM 9.3 MG/DL (8.5-10.1); CARBON DIOXIDE 25 MMOL/L (21-32); CHLORIDE 103 MMOL/L (98-107); CREATININE SERUM 0.79 MG/DL (0.60-1.30); GFR ESTIMATED > 60; GLUCOSE 87 MG/DL (70-105); POTASSIUM 4.2 MMOL/L (3.6-5.0); SODIUM 139 MMOL/L (135-145); TOTAL PROTEIN 7.3 GM/DL (6.4-8.2)
[2018-10-05 13:04] LABS: ERYTHROCYTE SEDIMENTATION RATE 58 MM/HR (0-20)
--- NOTE | 2018-10-05 15:44 | Diagnostic Imaging Report ---
INDICATION: Chest pain. COMPARISON: 07/30/2014. FINDINGS: Frontal and lateral views of the chest demonstrate clear lungs bilaterally. The heart is normal. There is no pneumothorax. Osseous structures are normal. IMPRESSION: Negative chest. Dictated by: Dictated on workstation # [id number]
== END ==
LOC: LAB 11:45
PROVIDERS: ATTEND Internal Medicine
DX: Z00.00 Encounter for general adult medical examination without abnormal findings (principal); R07.89 Other chest pain; J90 Pleural effusion, not elsewhere classified; I26.99 Other pulmonary embolism without acute cor pulmonale; R79.9 Abnormal finding of blood chemistry, unspecified; R79.1 Abnormal coagulation profile
CPT/HCPCS: 36415; 71046; 80053; 83880; 84484; 85025; 85379; 85652; 86141; 93306

== ENCOUNTER 2019-06-27 09:56 | Outpatient (CLI) | payer BC ==
[~2019-06-27] VITALS: Ht 170.2 cm; Wt 118.2 kg
[2019-06-27] MEDS ORDERED: ESTR2TAB PO (10:15)
[2019-06-27] MEDS ORDERED: progesterone PO (10:15)
[2019-06-28] MEDS ORDERED: PANT40TA2 PO (14:24)
== END 2019-06-27 10:17 | disposition home or self-care (01) ==
LOC: PREOP 09:56
PROVIDERS: ATTEND Surgery
DX: Z01.818 Encounter for other preprocedural examination (principal)

== ENCOUNTER 2019-08-18 05:32 | Outpatient (CLI) | payer BC ==
[~2019-08-18] VITALS: Ht 170.2 cm; Wt 115.9 kg
[~2019-08-18 05:32] MED LIST changes: +ESTR2TAB PO; +PANT40TA2 PO; +progesterone PO
[2019-08-18] MEDS ORDERED: PANT40TA3 PO (10:51)
[2019-08-18] MEDS ORDERED: SUCR1TAB PO (10:51)
== END 2019-08-18 10:57 ==
LOC: PREOP 05:32
PROVIDERS: ATTEND Surgery
DX: Z01.818 Encounter for other preprocedural examination (principal)

== ENCOUNTER 2019-08-24 07:58 | Day surgery (SDC) | payer BC, OTHER ==
--- NOTE | 2019-08-14 18:00 | HISTORY AND PHYSICAL ---
DATE OF SERVICE: ATTENDING PHYSICIAN: Dr. Chantelle Landrum. PROCEDURE DATE: 08/24/2019. HISTORY OF PRESENT ILLNESS: The is a 48-year-old female with a history of morbid obesity and medical comorbidities related to obesity including obstructive sleep apnea, gastroesophageal reflux disease, who is status post laparoscopic adjustable gastric band placement with an AP standard band on 11/20/2009. She was seen on 06/26/2019 in the office for complaints of dysphagia and was able to get any solids down and can only tolerate small amounts of liquid. She reported that she was having episodes of reflux at a time, but denied any nausea or vomiting. She did have some of the fluid removed from the band and felt that it was easy for her to drink much easier; however, this did continue to persist. She then underwent an EGD on 06/28/2019, where she was found to have reflux esophagitis stage II, a small gastric pouch, superior slippage of the gastric band as well as a moderate gastritis. Biopsies were negative for any H. pylori, it was negative for Pro's esophagus. She then followed back up in the office to have all the fluid removed from the band. She then returned to the office approximately 4 weeks later with recurrent symptoms despite having all the fluid removed from the band. It was discussed with the patient and at that time, she wishes to proceed with having the laparoscopic adjustable gastric band removed. PAST MEDICAL HISTORY: Morbid obesity, gastroesophageal reflux disease, obstructive sleep apnea. PAST SURGICAL HISTORY: Tonsillectomy as a child, D and C in 1997, in 1998, left plantar fasciotomy in 07/2018, laparoscopic adjustable gastric band with an APS band on 11/20/2009. ALLERGIES: No known drug allergies. MEDICATIONS: Prilosec, estrogen and progesterone. SOCIAL HISTORY: Negative for smoking, negative for alcohol. FAMILY HISTORY: Mother with diabetes, father with non-Hodgkin's lymphoma. REVIEW OF SYSTEMS: A well-nourished female in no acute distress. She is not experiencing any shortness of breath or difficulty breathing. No chest pain, palpitations or diaphoresis. No nausea or vomiting. She does report episodes of heartburn as well as reflux and dysphagia. No diarrhea or constipation. No red blood per rectum. No dark tarry stools. No fever or chills. No recent inadvertent weight loss. All other review of systems are negative. PHYSICAL EXAMINATION: VITAL SIGNS: Stable. Preoperative weight is 266.2 at 5 feet 6 inches. Current weight is 265 pounds with body mass index of 42.8. CHEST: Clear. Good breath sounds bilaterally. HEART: Regular, no murmurs. EXTREMITIES: No lower extremity edema. Negative Homans sign. HEENT: No scleral icterus. No cervical lymphadenopathy. ABDOMEN: Soft, nontender, nondistended. No palpable masses. No organomegaly. SKIN: Warm, dry and pink. NEUROLOGIC: Awake, alert and oriented x3. ASSESSMENT AND PLAN: A 48-year-old female with a history of morbid obesity and medical comorbidities related to obesity including gastroesophageal reflux disease, obstructive sleep apnea. She is status post laparoscopic adjustable gastric band on 11/20/2009. At this time, she has developed recurrent continued episodes of reflux as well as dysphagia despite conservative medical management having all the fluid removed from the band. She did undergo a recent EGD, which also showed a superior slippage of the gastric band. It was discussed with the patient in depth and at this time, due to her recurrent symptoms despite the continued medical management. We will proceed with a diagnostic laparoscopy and removal of the laparoscopic adjustable gastric band. The risks and benefits of the procedure as well as the procedure and home care instructions were explained to the patient. The patient verbalized understanding of instructions and agrees to proceed as planned. At this time, we will proceed with scheduling the patient for a diagnostic laparoscopy and removal of the laparoscopic adjustable gastric band. Job ID: [id number] DocumentID: [id number] Dictated Date: 08/14/2019 16:28:30 Mule Packer Date: 08/14/2019 17:59:49 Dictated By: EVAN KOVACS APRN
[2019-08-24] VITALS (11 sets, daily range): BP systolic 92–135; BP diastolic 56–90
[~2019-08-24] VITALS: Ht 170.2 cm; Wt 115.9 kg
[~2019-08-24 07:58] MED LIST changes: +PANT40TA3 PO; +SUCR1TAB PO
--- NOTE | 2019-08-24 08:26 | Progress Note-Pre Operative ---
Pre-Operative Progress Note H&P Reviewed The H&P was reviewed, patient examined and no changes noted. Date Seen by Provider: Aug 24, 2019 Time Seen by Provider: 08:25 Date H&P Reviewed: Aug 24, 2019 Time H&P Reviewed: 08:20 Pre-Operative Diagnosis: Reflux, dysphagia, epigastric abdominal pain EVAN KOVACS APRN Aug 24, 2019 08:26 POS
[2019-08-24] MEDS ORDERED: HYDR-3816 PO (08:28)
--- NOTE | 2019-08-24 08:28 | Discharge Inst-Surgical ---
D/C Lap Instructions-KIDO Reconcile Patient Problems Problems Reviewed?: Yes New, Converted, or Re-Newed RX: RX on Chart Follow Up Appt in 2 weeks Activity as tolerated No driving for 24 hours No driving while on pain medications Incentive Spirometry use every 2 hours while awake Regular Diet Symptoms to Report: Fever over 101 degree F, Nausea/Vomiting Infection Signs and Symptoms to report: Increased redness, Foul odor of wound, Increased drainage Bathing instructions: May shower Operative Area Clean/Dry; Keep incision clean/dry If any problems/questions: Contact your physician or go to Emergency Room EVAN KOVACS APRN Aug 24, 2019 08:28 POS
[2019-08-24] MEDS ORDERED: HYDROcodone/APAP 5 MG/325 MG (LORTAB) TAB PO ONE (08:30)
[2019-08-24] MEDS ORDERED: ONDANSETRON 4 MG/2 ML (SDV) Z0FRAN IVP PRN ×2 (08:30→11:45)
[2019-08-24] MEDS ORDERED: ACETAMINOPHEN 325 MG TABLET PO PRN (08:30)
[2019-08-24] MEDS ORDERED: morphine INJ 10 MG/ML 1ML (SYR OR VIAL) IVP PRN (08:30)
[2019-08-24] MEDS ORDERED: ceFAZolin 2 GM/50 ML NS 50 ML ONE (08:44)
[2019-08-24] MEDS ORDERED: ceFAZolin 2 GM/50 ML NS 50 ML IV ONE (08:45)
[2019-08-24] MEDS: LACTATED RINGERS 1,000 ML IV PRN ×2 (08:47→10:07)
[2019-08-24] MEDS ORDERED: ONDANSETRON 4 MG/2 ML (SDV) Z0FRAN ONE (08:57)
[2019-08-24] MEDS ORDERED: SEVOFLURANE (ULTANE) 15 ML INHAL SOLN ONE ×6 (08:57→10:51)
[2019-08-24] MEDS ORDERED: ROCURONIUM 10 MG/ML 5 ML SYRINGE IV ONE ×2 (08:57→11:09)
[2019-08-24] MEDS ORDERED: proPOfol 200 MG/20 ML (DIPRIVAN) VIAL IV ONE (08:57)
[2019-08-24] MEDS ORDERED: DEXAMETHASONE 10 MG/ML (DECADRON) 1 ML VIAL ONE (08:57)
[2019-08-24] MEDS ORDERED: LIDOCAINE PF 2% 5 ML (XYLOCAINE) VIAL ONE (08:57)
[2019-08-24] MEDS ORDERED: fentaNYL INJECTION 100 MCG/2 ML AMP ONE ×2 (08:58→10:50)
[2019-08-24] MEDS ORDERED: BUP/EPI 0.5% 1:200,000 (MARCAINE) 10ML VIAL IJ ONE (09:02)
[2019-08-24] MEDS ORDERED: MIDAZOLAM 2 MG/2 ML (VERSED) VIAL ONE (09:46)
[2019-08-24] MEDS ORDERED: GLYCOPYRROLATE 0.2 MG/ML (ROBINUL) 2 ML VIAL ONE (10:52)
[2019-08-24] MEDS ORDERED: NEOSTIGMINE 3 MG/3 ML VIAL ONE (10:52)
--- NOTE | 2019-08-24 11:02 | Progress Note-Post Operative ---
Post-Operative Progess Note Surgeon (s)/Forging Machine Hand (s) Surgeon SHEREEN GASTON MD Forging Machine Hand: griselda conroy COTTON TIPPER Pre-Operative Diagnosis Reflux, dysphagia, epigastric abdominal pain Post-Operative Diagnosis inferior band slippage Procedure & Operative Findings Date of Procedure 08/24/19 Procedure Performed/Findings diagnostic laparoscopy and gastric band and adjustment component removal. Anesthesia Type get Estimated Blood Loss Estimated blood loss (mL): minimal Specimens/Packing Specimens Removed none SHEREEN GASTON MD Aug 24, 2019 11:02 POS
--- NOTE | 2019-08-24 11:37 | Anesthesia-General Post-Op ---
General Patient Condition Mental Status/LOC: Same as Preop Cardiovascular: Satisfactory Nausea/Vomiting: Absent Respiratory: Satisfactory Pain: Controlled Complications: Absent Post Op Complications Complications None Follow Up Care/Instructions Patient Instructions None needed. Anesthesia/Patient Condition Patient Condition Patient is doing well, no complaints, stable vital signs, no apparent adverse anesthesia problems. No complications reported per nursing. LATOYA OLEA CRNA Aug 24, 2019 11:37 POS
[2019-08-24] MEDS ORDERED: PROMETHAZINE INJ 25 MG/ML (PHENERGAN) AMP IVP ONE (11:45)
[2019-08-24] MEDS ORDERED: morphine INJ 10 MG/ML 1ML (SYR OR VIAL) IVP ONE (11:45)
[2019-08-24] MEDS ORDERED: fentaNYL INJECTION 100 MCG/2 ML AMP IVP ONE (11:45)
[2019-08-24] MEDS ORDERED: HYDROmorphone 2 MG/ML VIAL (DILAUDID) IV ONE (11:45)
[2019-08-24] MEDS ORDERED: KETOROLAC 30 MG/ML VIAL IVP ONE (11:45)
[2019-08-24] MEDS ORDERED: MEPERIDINE (DEMEROL) INJ 50 MG/ML IVP ONE (11:45)
[2019-08-24] MEDS ORDERED: HYDROcodone/APAP 5 MG/325 MG (LORTAB) TAB ONE (12:50)
--- NOTE | 2019-08-24 19:01 | OPERATIVE REPORT ---
DATE OF SERVICE: 08/24/2019 ATTENDING PRIMARY CARE PHYSICIAN: Dr. Ventura. PREOPERATIVE DIAGNOSES: Reflux, regurgitation and epigastric pain, band slippage. POSTOPERATIVE DIAGNOSES: Reflux, regurgitation and epigastric pain, band slippage with the posterior band slippage identified. PROCEDURE: Diagnostic laparoscopy and laparoscopic adjustable gastric band and adjustment component removal. SURGEON: Shereen Gaston MD. SALESPERSON PARTS: Constantin Sargent APRN. ANESTHESIA: General endotracheal. ESTIMATED BLOOD LOSS: Minimal. FINDINGS: Reflux, regurgitation and epigastric pain, band slippage with the posterior band slippage identified. DISPOSITION: The patient tolerated the procedure well. INDICATIONS: The patient is a 48-year-old female known to us. She has a history of morbid obesity and medical comorbidities including hypertension, gastroesophageal reflux disease. She underwent a laparoscopic adjustable gastric band placement in 2009, initially did well; however, in recent years, has had issues with reflux and regurgitation despite proceeding with maximal medical therapy with small and more frequent meals and the right high protein liquid diet with lean meat protein sources. She has undergone multiple adjustments including fluid removal; however, continues to have reflux and regurgitation. An x-ray was performed, which did show the angulation of the band lying in approximately 90 degrees from the Oakley angle consistent with a band slippage. DESCRIPTION OF PROCEDURE: The patient was brought to the operating room, laid supine on the table. After adequate IV pain and sedative medications and general endotracheal intubation, the abdomen was prepped and draped in standard surgical fashion. A 0.5% Marcaine with epinephrine was used to anesthetize the overlying skin in the left upper abdominal quadrant and a transverse skin incision made using a 15 blade. An 0 silk suture was applied to the medial aspect incision for retraction and a Veress needle inserted with a low opening pressure of 0 mmHg and the abdomen was then insufflated to 15 mmHg pressure. The Veress needle removed and a 5 mm XL trocar placed followed by a 5 mm 45-degree angle laparoascope visualizing the peritoneal cavity and a four quadrant abdominal exploration was performed. The patient was placese Trendelenburg position. There was angulation of the band at approximately 90 degrees from the Oakley angle coming from the vertebral column consistent with a posterior band slippage. We then proceeded to place a 10 mm lef to midline port after the skin and peritoneal lining were anesthetized using 0.5% Marcaine with epinephrine and a transverse skin incision made using 15 blade. In a similar manner, 2 right upper abdominal quadrant 5 mm ports were placed. The buckle of the band was then dissected using blunt dissection as well as a Sonicision. This was then clasped and then removed with minimal resistance. The band tubing was cut and the gastric band was removed through the 10 mm port site. Good hemostasis was observed. The fascia to the 10 mm port site was then closed under direct visualization using a Maikel-Holger device and 0 Vicryl suture. The abdomen was then desufflated. The skin incision to the mid abdominal right of midline port was then extended using a 15 blade and the subcutaneous adjustment port was then dissected using electrocautery. This was then removed from the fascia including the nonabsorbable Surgidac sutures using blunt dissection as well as electrocautery. Good hemostasis was observed. The remainder of the ports were then removed under all skin incisions were closed using 4-0 Monocryl running subcuticular suture. Wounds were then cleaned and covered with Dermabond. The patient tolerated the procedure well. We will start IV normal pain medication as well as a clear liquid diet. When she is tolerating clears, has good pain control with oral pain medications, ambulating well, we will discharge her home. We will instruct her to proceed with a phase I clear liquid diet for the next 3 days and then slowly advance from that point forward. Job ID: [id number] DocumentID: [id number] Dictated Date: 08/24/2019 11:09:10 Ground Transportation Operator Date: 08/24/2019 16:00:25 Dictated By: SHEREEN GASTON MD MTDD
== END 2019-08-24 13:15 | disposition home or self-care (01) ==
LOC: SDC 07:58
PROVIDERS: ATTEND Surgery
DX: K59.09 Other constipation (principal); K21.9 Gastro-esophageal reflux disease without esophagitis; I10 Essential (primary) hypertension; R11.10 Vomiting, unspecified; E66.01 Morbid (severe) obesity due to excess calories; Z68.41 Body mass index [BMI] 40.0-44.9, adult; Z79.899 Other long term (current) drug therapy; Z90.89 Acquired absence of other organs; G47.33 Obstructive sleep apnea (adult) (pediatric); Z83.3 Family history of diabetes mellitus; Z80.7 Family history of other malignant neoplasms of lymphoid, hematopoietic and related tissues
CPT/HCPCS: 84703; 87081

== ENCOUNTER → 2019-10-16 | Outpatient (CLI) | payer BC ==
[~2019-10-16] MED LIST changes: +HYDR-3816 PO
--- NOTE | 2019-10-16 11:58 | Diagnostic Imaging Report ---
INDICATION: Routine screening. COMPARISON: Comparison is made with prior mammograms from 08/18/2018 and 03/25/2017. 2-D and 3-D bilateral screening mammography was performed. The current study was also evaluated with a Computer Aided Detection (CAD) system. 3-D tomosynthesis was also performed and reviewed. FINDINGS: Scattered fibroglandular densities are identified bilaterally. Asymmetric density in the medial right breast appears stable. No new masses or malignant-appearing microcalcifications are seen. Axillae are unremarkable. IMPRESSION: No mammographic features suspicious for malignancy are identified. ACR BI-RADS Category 2: Benign findings. Result letter will be mailed to the patient. Note: At least 10% of breast cancer is not imaged by mammography. Dictated by: Dictated on workstation # [id number]
== END ==
LOC: RAD 09:41
PROVIDERS: ATTEND Obstetrics & Gynecology
DX: Z12.31 Encounter for screening mammogram for malignant neoplasm of breast (principal)
CPT/HCPCS: 77067

== ENCOUNTER 2020-01-17 10:00 | Outpatient (CLI) | payer BC ==
[~2020-01-17] VITALS: Ht 167.7 cm; Wt 120.5 kg
[~2020-01-17 10:00] MED LIST changes: +HYDR-34 PO; -HYDR-3816 PO
[2020-01-17] MEDS ORDERED: ESTR1TAB24 PO (10:12)
== END 2020-01-17 12:12 ==
LOC: PREOP 10:00
PROVIDERS: ATTEND Obstetrics & Gynecology
DX: Z01.818 Encounter for other preprocedural examination (principal)

== ENCOUNTER → 2021-02-06 | Outpatient (CLI) | payer BC, OTHER ==
[~2021-02-06] VITALS: Ht 170 cm; Wt 131.8 kg
[~2021-02-06] MED LIST changes: +DOCU-143 PO; +ESTR1TAB24 PO; +IBUP-1780 PO; +OXYC1TAB87 PO; -PANT40TA3 PO; +PANT40TA52 PO
== END | disposition home or self-care (01) ==
LOC: PREOP 07:31
PROVIDERS: ATTEND Surgery
DX: Z01.818 Encounter for other preprocedural examination (principal)

== ENCOUNTER 2021-02-14 10:27 | Day surgery (SDC) | payer BC, OTHER ==
[~2021-02-14] VITALS: Ht 170.2 cm; Wt 131.8 kg
[2021-02-14] MEDS ORDERED: LACTATED RINGERS 1,000 ML IV STA (10:35)
[2021-02-14] MEDS ORDERED: LIDOCAINE JELLY 2% 6 ML SYRINGE MM PRN (10:45)
[2021-02-14] MEDS ORDERED: HURRICAINE EXT TUBE (BENZOCAINE) XX PRN (10:45)
[2021-02-14] MEDS ORDERED: MIDAZOLAM 2 MG/2 ML (VERSED) VIAL ONE (10:53)
[2021-02-14] MEDS ORDERED: PROPOFOL INJECTION 50 ML IV ONE ×2 (10:53→12:22)
--- NOTE | 2021-02-14 10:56 | Conscious Sedation/ASA ---
Conscious Sedation Pre-Proced Time 10:45 ASA Score 2 For ASA 3 and 4: Consider anesthesia and medical clearance. Also, for patients with a history of failed moderate sedation consider anesthesia. Airway Lungs Heart ASA score ASA 1: a normal healthy patient ASA 2: a patient with a mild systemic disease (mid diabetes, controlled hypertension, obesity ASA 3: a patient with a severe systemic disease that limits activity (angina, COPD, prior Myocardial infarction) ASA 4: a patient with an incapacitating disease that is a constant threat to life (CHF, renal failure) ASA 5: a moribund patient not expected to survive 24 hrs. (ruptured aneurysm) ASA 6: a declared brain- patient whose organs are being harvested. For emergent operations, add the letter E after the classification Mallampati Classification Grade 2 Sedation Plan Analgesia, Amnesia, Plan communicated to team members, Discussed options with patient/fam, Discussed risks with patient/fam The patient is an appropriate candidate to undergo the planned procedure, sedation, and anesthesia. The patient immediately re-assessed prior to indication. SHEREEN GASTON MD February 14, 2021 10:56
--- NOTE | 2021-02-14 10:57 | Progress Note-Pre Operative ---
Pre-Operative Progress Note H&P Reviewed The H&P was reviewed, patient examined and no changes noted. Date Seen by Provider: February 14, 2021 Time Seen by Provider: 10:45 Date H&P Reviewed: February 14, 2021 Time H&P Reviewed: 10:45 Pre-Operative Diagnosis: GERD, screening colonoscopy SHEREEN GASTON MD February 14, 2021 10:57
--- NOTE | 2021-02-14 10:59 | Discharge Inst-Surgical ---
D/C Lap Instructions-ALEK Follow Up Appt in 2 weeks Activity as tolerated High Fiber Diet 25g or more per day Avoid Alcohol, Caffeine, Spicy Domino and Acid foods. Drink 64 fluid oz or more of fluids per day. Symptoms to Report: Fever over 101 degree F, Nausea/Vomiting If any problems/questions: Contact your physician or go to Emergency Room SHEREEN GASTON MD February 14, 2021 10:58
[2021-02-14] MEDS ORDERED: HYDROcodone/APAP 5 MG/325 MG (LORTAB) TAB PO PRN (11:00)
[2021-02-14] MEDS ORDERED: ONDANSETRON 4 MG/2 ML (SDV) Z0FRAN IVP PRN (11:00)
[2021-02-14] MEDS ORDERED: ACETAMINOPHEN 325 MG TABLET PO PRN (11:00)
[2021-02-14] MEDS ORDERED: morphine INJ 10 MG/ML 1ML (SYR OR VIAL) IVP PRN ×2 (11:00)
[2021-02-14 11:02] VITALS: BP 150/85
[2021-02-14] MEDS ORDERED: LIDOCAINE JELLY 2% 6 ML SYRINGE ONE (11:57)
[2021-02-14 12:40] VITALS: BP 131/68
[2021-02-14 12:45] VITALS: BP 119/56
[2021-02-14 12:54] VITALS: BP 119/56
[2021-02-14 13:20] VITALS: BP 131/83
--- NOTE | 2021-02-14 13:49 | Progress Note-Post Operative ---
Post-Operative Progess Note Surgeon (s)/Pre Sales Network Engineer (s) Surgeon SHEREEN GASTON MD Pre Sales Network Engineer: none Pre-Operative Diagnosis GERD, screening colonoscopy Post-Operative Diagnosis reflux esophagitis(stage 2), moderate type 1 HH(3cm), mild gastritis. chronic stage 2 ext and int hemorrhoids. Procedure & Operative Findings Date of Procedure 02/14/21 Procedure Performed/Findings EGD with bx. colonoscopy. Anesthesia Type mac Estimated Blood Loss Estimated blood loss (mL): minimal Specimens/Packing Specimens Removed ge jxn, antrum SHEREEN GASTON MD February 14, 2021 13:49
--- NOTE | 2021-02-14 14:36 | Anesthesia-General Post-Op ---
MAC Patient Condition Mental Status/LOC: Same as Preop Cardiovascular: Satisfactory Nausea/Vomiting: Absent Respiratory: Satisfactory Pain: Controlled Complications: Absent Post Op Complications Complications None Follow Up Care/Instructions Patient Instructions None needed. Anesthesiology Discharge Order Discharge Order Patient is doing well, no complaints, stable vital signs, no apparent adverse anesthesia problems. No complications reported per nursing. MARLEEN BEGUM CRNA February 14, 2021 14:36
--- NOTE | 2021-02-14 18:35 | OPERATIVE REPORT ---
DATE OF SERVICE: 02/14/2021 ATTENDING PRIMARY CARE PHYSICIAN: Dr. Chantelle Landrum. PREOPERATIVE DIAGNOSES: Gastroesophageal reflux disease, screening colonoscopy. POSTOPERATIVE DIAGNOSES: Reflux esophagitis stage II, moderate-sized type 1 hiatal hernia approximately 3 cm in size. Mild to moderate gastritis. No distal obstructions. Mild chronic stage II external and internal hemorrhoids, remainder of the rectum and colon were normal. PROCEDURES PERFORMED: EGD with biopsy and colonoscopy. SURGEON: Shereen Au MD. ANESTHESIA: Monitored anesthesia care. ESTIMATED BLOOD LOSS: Minimal. FINDINGS: Reflux esophagitis stage II, moderate-sized type 1 hiatal hernia approximately 3 cm in size. Mild to moderate gastritis. No distal obstructions. Mild chronic stage II external and internal hemorrhoids, remainder of the rectum and colon were normal. DISPOSITION: The patient tolerated the procedure well. INDICATIONS FOR PROCEDURE: The patient is a 50-year-old female known to us. She has had worsening reflux in the past several years. She did undergo a laparoscopic adjustable gastric band many years ago and during that process, she did develop significant reflux. The band was eventually removed; however, she has had continued and worsening reflux over time. She also was found to be iron deficient. She is also in need of a screening colonoscopy. She does not report any major issues with diarrhea nor constipation as well as no red blood per rectum nor any dark tarry stools. She also does not report any family history of colon cancer. DESCRIPTION OF PROCEDURE: The patient was brought to the endoscopy suite and laid in the left lateral decubitus position with head slightly elevated. After adequate IV pain and sedative medications and monitored anesthesia care, the mouthpiece was applied. The endoscope was placed in the mouth, visualizing the pharynx and hypopharyngeal region. Vocal cords, epiglottis and vallecula identified and appeared to be normal. The endoscope was then gently intubated, the esophageal opening and esophagus insufflated. The endoscope was then advanced to the first, second and third portion of the esophagus, at the level of the GE junction, reflux esophagitis stage II identified. The GE junction was also intrathoracic consistent with a hiatal hernia. A biopsy was taken of the GE junction with forceps with visualization of good hemostasis. The endoscope was then advanced into the stomach and endoscope retroflexed, visualizing a moderate sized type 1 hiatal hernia approximately 3 cm in size. There was a mild to moderate gastritis. No formal ulcerations, polyps or any neoplasms as well as no active bleeding sources. A biopsy was taken of the antrum to rule out H. pylori with visualization of good hemostasis. The endoscope was then advanced to the pylorus and the first and second portions of the duodenum, which appeared normal with no ulcerations or any bleeding. The endoscope was then slowly withdrawn while taking a second look and suctioning of residual air with no additional findings. A digital rectal examination was then performed, which revealed chronic stage II external and internal hemorrhoids, not actively edematous nor inflamed and no bleeding. Normal sphincter tone was felt and there were no palpable masses. The endoscope was then intubated to the anus and rectum gently insufflated. The endoscope was then advanced through the valves of Lafleur of the rectum with no polyps or any neoplasms identified. Through the sigmoid colon, no diverticulosis identified. The endoscope was then advanced through the remainder of the descending, transverse and ascending colon to the cecum. These segments were normal. There were no polyps or any neoplasms identified as well as no potential bleeding sources. The endoscope was then slowly withdrawn while taking a second look and suctioning of residual air with no additional findings. The patient tolerated the procedure well. We will recommend the necessary lifestyle and diet accommodation including small and more frequent meals, avoidance of eating at night as well as head elevation while lying supine. She also needs to proceed with cessation of caffeinated beverages as well as spicy, greasy and acidic foods and continue with Protonix 40 mg daily. She does have a significant size hiatal hernia, which will promote continued reflux type of symptoms; however, her body mass index is too high for a hiatal hernia repair as well as an antireflux procedure due to the very high reoccurrence rate. If she wants to proceed with a combination hiatal hernia repair along with a gastric sleeve resection or some other form of bariatric surgical procedure, that may be an option. Job ID: [id number] DocumentID: [id number] Dictated Date: 02/14/2021 12:58:13 Engineering And Operations Director Date: 02/14/2021 18:35:00 Dictated By: SHEREEN AU MD
== END 2021-02-14 13:25 ==
LOC: ENDO 10:27
PROVIDERS: ATTEND Surgery
DX: Z12.11 Encounter for screening for malignant neoplasm of colon (principal); K21.00 Gastro-esophageal reflux disease with esophagitis, without bleeding; K29.50 Unspecified chronic gastritis without bleeding; K44.9 Diaphragmatic hernia without obstruction or gangrene; K64.4 Residual hemorrhoidal skin tags; D50.9 Iron deficiency anemia, unspecified; K64.1 Second degree hemorrhoids; G47.33 Obstructive sleep apnea (adult) (pediatric); E66.01 Morbid (severe) obesity due to excess calories; Z68.42 Body mass index [BMI] 45.0-49.9, adult; Z79.899 Other long term (current) drug therapy; Z90.89 Acquired absence of other organs; Z90.710 Acquired absence of both cervix and uterus; Z83.3 Family history of diabetes mellitus; Z82.49 Family history of ischemic heart disease and other diseases of the circulatory system

== ENCOUNTER → 2021-06-24 | Outpatient (CLI) | payer BC, OTHER ==
--- NOTE | 2021-06-24 18:19 | Diagnostic Imaging Report ---
INDICATION: Routine screening. COMPARISON is made with prior mammograms from 10/16/2019 and 08/18/2018. 2-D and 3-D bilateral screening mammography was performed with CAD. Scattered fibroglandular densities are identified bilaterally. The irregular density in the medial right breast has been stable for several years. This remains stable in appearance. No new mass is identified. No malignant-appearing microcalcifications are seen. Axillae are unremarkable. IMPRESSION: BI-RADS Category 2 No mammographic features suspicious for malignancy are identified. ACR BI-RADS Category 2: Benign findings. Result letter will be mailed to the patient. Note: At least 10% of breast cancer is not imaged by mammography. Dictated by: Dictated on workstation # [id number]
== END ==
LOC: RAD 13:15
PROVIDERS: ATTEND Internal Medicine
DX: Z12.31 Encounter for screening mammogram for malignant neoplasm of breast (principal)
CPT/HCPCS: 77063; 77067

== ENCOUNTER → 2022-09-23 | Outpatient (CLI) | payer BC, OTHER ==
[~2022-09-23] MED LIST changes: -ESTR2TAB PO; +ESTR2TAB3 PO
--- NOTE | 2022-09-23 20:40 | Diagnostic Imaging Report ---
INDICATION: Routine screening. COMPARISON: Prior mammograms from 06/24/2021 and 10/16/2019. EXAMINATION: 2D and 3D bilateral screening mammography was performed with CAD. The current study was also evaluated with a Computer Aided Detection (CAD) system. FINDINGS: Scattered fibroglandular densities are identified, bilaterally. Previously noted density in the medial right breast is stable. No new mass or malignant-appearing microcalcifications are seen. Axillae are unremarkable. IMPRESSION: No mammographic features suspicious for malignancy are identified. ACR BI-RADS Category 1: Negative. Result letter will be mailed to the patient. Note: At least 10% of breast cancer is not imaged by mammography. Dictated by: Dictated on workstation # [id number]
== END ==
LOC: RAD 11:05
PROVIDERS: ATTEND Obstetrics & Gynecology
DX: Z12.31 Encounter for screening mammogram for malignant neoplasm of breast (principal)
CPT/HCPCS: 77063; 77067